=== PATIENT | male | born 1965 | race Caucasian/White ===

== ENCOUNTER 2016-06-27 07:11 | Emergency (ER) | payer OTHER ==
[2016-06-27 07:50] VITALS: BP 136/74
--- NOTE | 2016-06-27 08:00 | UC ---
Dahlia Mcmullen Janilya, scribed for Cristy Daniel MD on 06/27/16 at 0743 . Respiratory Complaint HPI - HPI Summary HPI Summary: A 51 y/o male came in to [facility] presenting w/ a gradual onset of constant sinus infection starting last week on Jun 22, 2016. Pt states he felt uncomfortable sensation in his teeth. He visited a dentist on 06/22 and was told his teeth were normal. Over the course of this week, his conditions have progressively worsened. In fact, he woke up last night at 0300 with discomfort. He reports popping in the ear and throbbing pain in the face. It is localized on the left side, however, pt says it sometimes shifts to the right side. Pt denies fever, coughing, wheezing. Pt states it feels like usual Sx when he had sinus infection previously. Initial blood pressure noted at 193/98. Manual measurement bp at 136/74. Pt is unaccompanied. Pt did not take any OTC cold medicine or decongestants. PMHx rheumatoid arthritis. - History of Current Complaint Chief Complaint: UCRespiratory Stated Complaint: SINUS ISSUE Time Seen by Provider: 06/27/16 07:23 Hx Obtained From: Patient Onset/Duration: Gradual Onset, Lasting Days, Still Present Timing: Constant Severity Initially: Moderate Severity Currently: Moderate Pain Intensity: 3 Pain Scale Used: 0-10 Numeric Aggravating Factors: Nothing Alleviating Factors: Nothing Associated Signs And Symptoms: Negative: Fever, Wheezing - Allergies/Home Medications Allergies/Adverse Reactions: Allergies Allergy/AdvReac Type Severity Reaction Status Date / Time No Known Allergies Allergy Verified 06/17/15 11:49 Home Medications: Home Medications Amlodipine Besylate [Norvasc-] 1 tab PO DAILY 06/27/16 [History Confirmed ] Diclofenac Sodium EC TAB* [Voltaren EC TAB*] 3 tab PO BID PRN 06/27/16 [History Confirmed 06/27/16] Hydroxychloroquine TAB* [Plaquenil TAB*] 2 tab PO DAILY 06/27/16 [History Confirmed 06/27/16] Lisinopril/HCTZ 20/12.5(NF) [Zestoretic 20/12.5(NF)] 1 tab PO DAILY 06/27/16 [ History Confirmed 06/27/16] Testosterone [Androgel] TOPICAL DAILY 06/27/16 [History] PMH/Surg Hx/FS Hx/Imm Hx Previously Healthy: Yes Endocrine History Of: Denies: Diabetes, Thyroid Disease Cardiovascular History Of: Reports: Hypertension Denies: Cardiac Disorders, Pacemaker/ICD Respiratory History Of: Denies: COPD, Asthma GI/ History Of: Denies: Ulcer - Surgical History Surgical History: Yes Surgery Procedure, Year, and Place: Hernia repair at age 14. - Family History Known Family History: Positive: Cardiac Disease - father, diabetes also, Hypertension - father, Diabetes - father - Social History Alcohol Use: Occasionally Substance Use Type: None Smoking Status (MU): Never Smoked Tobacco - Immunization History Most Recent Influenza Vaccination: DID NOT GET THIS SEASON Review of Systems Constitutional: Negative - pt denies fever, Other - pt reports discomfort and throbbing pain on the face Skin: Negative Eyes: Negative ENT: Other - pt reports popping in the ear Respiratory: Negative - pt denies cough and wheezing Cardiovascular: Negative Gastrointestinal: Negative Genitourinary: Negative Motor: Negative Neurovascular: Negative Musculoskeletal: Negative Neurological: Headache Psychological: Negative All Other Systems Reviewed And Are Negative: Yes Physical Exam Triage Information Reviewed: Yes Appearance: Well-Appearing Vital Signs: Initial Vital Signs Temp 99.2 F 06/27/16 07:29 Pulse 92 06/27/16 07:29 Resp 16 06/27/16 07:29 BP 193/98 06/27/16 07:29 Pulse Ox 95 06/27/16 07:29 Vital Signs Reviewed: Yes Eye Exam: Normal Eyes: Positive: Conjunctiva Clear ENT: Positive: Normal ENT inspection, Hearing grossly normal, Pharynx normal, TMs normal, Other: - no maxillary or frontal tenderness b/l.. Negative: Pharyngeal erythema, TM bulging, TM dull, TM red, Tonsillar exudate Dental Exam: Normal Neck: Positive: Supple, Nontender, No Lymphadenopathy Respiratory: Positive: Lungs clear, Normal breath sounds, No respiratory distress, No accessory muscle use Cardiovascular: Positive: RRR, No Murmur, Pulses Normal Abdomen Description: Positive: Nontender, Soft Musculoskeletal Exam: Normal Neurological Exam: Normal Psychological Exam: Normal Skin Exam: Normal UC Diagnostic Evaluation - Laboratory O2 Sat by Pulse Oximetry: 95 Respiratory Course/Dx - Differential Dx/Diagnosis Provider Diagnoses: Sinus infection Discharge - Discharge Plan Condition: Stable Disposition: HOME Prescriptions: Amoxicillin (*) 875 mg PO BID #20 tab Patient Education Materials: Sinusitis (ED) Referrals: Evin Barton MD [Medical Doctor] - No Primary Care Phys,NOPCP [Primary Care Provider] - Additional Instructions: 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 Take a probiotic. Use daily saline lavage while you have sinus symptoms followed by OTC flonase nasal spray. Avoid decongestants due to hypertension. The documentation as recorded by the Dahlia perera Janilya accurately reflects the service I personally performed and the decisions made by me, Cristy Daniel MD.
== END 2016-06-27 07:52 | disposition home or self-care (01) ==
LOC: UCEAST 07:11
DX: J32.9 Chronic sinusitis, unspecified (principal); I10 Essential (primary) hypertension; M06.9 Rheumatoid arthritis, unspecified
CPT/HCPCS: 99212; G0463

== ENCOUNTER 2017-10-31 08:28 | Emergency (ER) | payer OTHER ==
[2017-10-31 08:49] VITALS: BP 165/92
--- NOTE | 2017-10-31 14:14 | UC ---
Gumaro Mcmullen Natalie, scribed for Caryn Espana MD on 10/31/17 at 1212 . Ear Complaint HPI - HPI Summary HPI Summary: The patient is a 52 y/o M presenting to [facility] c/o right ear pain starting a week ago and right shoulder and neck pain starting a few weeks ago. The pt was swimming and noticed that his ear was blocked. He has been using wax ear drops to some relief of wax build up, but there is still pain present, and not all of the wax has been removed. His left ear is normal. The shoulder pain is worsened by neck movement, especially when turning to the right side. The shoulder pain is not worsened by lifting weights or lifting arm over his shoulder. He states he can sometimes feel a "crunching" in his neck. The pain is rated 3/10 in severity. He denies fevers, chills, CP, SOB, nausea, vomiting, abd pain, and numbness or tingling in the fingers. He had fallen off of a roof four years ago and isn't sure how he fell off. He has hx of HTN, hypercholesterolemia, and RA. He takes amlodapine for HTN. He doesn't have any allergies. - History of Current Complaint Chief Complaint: UCEar Stated Complaint: EAR PLUGGED SHOULDER PAIN Time Seen by Provider: 10/31/17 08:56 Hx Obtained From: Patient Onset/Duration: Sudden Onset, Lasting Days - ear pain for 1 week, Lasting Weeks - shoulder and neck pain lasting for weeks, Still Present Severity Initially: Mild Severity Currently: Mild Pain Intensity: 3 Pain Scale Used: 0-10 Numeric Aggravating Factors: Other - movement of neck worsens shoulder pain, nothing worsens ear pain Alleviating Factors: Other (Noted In Comments) - rest alleviates shoulder pain, ear drops helped to relieve some wax buildup - Allergies/Home Medications Allergies/Adverse Reactions: Allergies Allergy/AdvReac Type Severity Reaction Status Date / Time No Known Allergies Allergy Verified 10/31/17 08:50 Home Medications: Home Medications Glucosamine Sulfate Dipot Chlr [Glucosamine] 1 tab PO DAILY 10/31/17 [History Confirmed 10/31/17] PMH/Surg Hx/FS Hx/Imm Hx - Additional Past Medical History Additional PMH: POSITIVE: rheumatoid arthritis Previously Healthy: Yes Endocrine History: Dyslipidemia, Other - hypercholesterolemia Other Endocrine History: negative Cardiovascular History: Hypertension Other Respiratory History: negative Other GI/ History: negative Other Neurological History: negative Other Psychological History: negative Other Cancer History: negative - Surgical History Surgical History: Yes Surgery Procedure, Year, and Place: Hernia repair at age 14. - Family History Known Family History: Positive: Cardiac Disease - father, diabetes also, Hypertension - father, Diabetes - father - Social History Alcohol Use: Occasionally Substance Use Type: None Smoking Status (MU): Never Smoked Tobacco - Immunization History Most Recent Influenza Vaccination: DID NOT GET THIS SEASON Review of Systems Constitutional: Other - NEGATIVE: fever or chills Skin: Negative Eyes: Negative ENT: Other - POSITIVE: pain in right ear Respiratory: Negative, Other - NEGATIVE: SOB Cardiovascular: Negative, Other - NEGATIVE: CP Gastrointestinal: Negative, Other - NEGATIVE: nausea, vomiting, abd pain Genitourinary: Negative Motor: Negative Neurovascular: Negative Musculoskeletal: Negative, Other: - pain in right neck and shoulder Neurological: Negative, Other - NEGATIVE: numbness or tingling in fingers Is Patient Immunocompromised?: No All Other Systems Reviewed And Are Negative: Yes Physical Exam - Summary Physical Exam Summary: Appearance: Well-Appearing, No Pain Distress, Well-Nourished Eyes: conjunctiva clear, no discharge ENT: Hearing grossly normal, no muffled/hoarse voice, right ear has impacted cerumen, left ear has cerumen present but is not impacted, no lymphadenopathy, no pharyngeal erythema Neck: no midline tenderness, there is mild mid right paraspinal tenderness noted. Supple, tenderness with motion and slightly limited ROM on right Pathak and Spurling tests negative in right shoulder Respiratory/Lung Sounds: Lungs clear, Normal breath sounds, No respiratory distress, No accessory muscle use Cardiovascular: RRR, No murmur Abdomen: Nontender, Soft, no guarding, not distended Bowel Sounds: Present Musculoskeletal: Shoulder: full ROM and strength and stability. Neurological: Alert, muscle tone normal Psychiatric:Normal, age appropriate behavior Skin: Normal, Warm, Dry, Normal color Triage Information Reviewed: Yes Vital Signs: Initial Vital Signs Temp 99.4 F 10/31/17 08:41 Pulse 98 10/31/17 08:41 Resp 18 10/31/17 08:41 BP 165/92 10/31/17 08:41 Pulse Ox 97 10/31/17 08:41 Vital Signs Reviewed: Yes Ear Complaint Course/Dx - Course Course Of Treatment: The patient is a 52 y/o M presenting to [facility] c/o right ear pain starting a week ago and right shoulder and neck pain starting a few weeks ago. He noticed the ear pain after swimming, so he has been using ear drops to help relive some wax buildup, although there is still pain. The shoulder pain is worsened by movement of his neck, especially by moving towards the right side. He denies fevers, chills, SOB, CP, nausea, vomiting, abd pain, and numbness or tingling in fingers. He has hx of HTN, hypercholesterolemia, and RA. Medciations reviewed. Allergies noted. In the [facility], the pt's right ear was irrigated. Patient will be discharged home with instructions for cervical strain and cerumen impaction. He is advised to follow up with his PCP in two days and consult with orthopedist, Dr. Santacruz Start PT for his neck. Patient is agreeable with this plan. - Differential Dx/Diagnosis Provider Diagnoses: cervical strain, cerumen impaction Discharge - Sign-Out/Discharge Documenting (check all that apply): Discharge/Admit/Transfer - Pt will be discharged home. - Discharge Plan Condition: Stable Disposition: HOME Patient Education Materials: Cervical Strain (ED), Cerumen Impaction (ED) Referrals: Shaw Santacruz MD [Medical Doctor] - 2 Weeks Evin Barton MD [Primary Care Provider] - 2 Weeks Additional Instructions: Start physical therapy for your neck strain Follow up with your primary care doctor in 2 days. Please follow up with orthopedics in 2 weeks for the consult Patients blood pressure slightly high in Urgent care today , plan follow up with PCP for better control Return to Urgent care / ER if symptoms get worse. - Billing Disposition and Condition Condition: STABLE Disposition: Home The documentation as recorded by the Gumaro perera Natalie accurately reflects the service I personally performed and the decisions made by me, Caryn Espana MD.
== END 2017-10-31 09:38 | disposition home or self-care (01) ==
LOC: UCEAST 08:28
DX: H61.21 Impacted cerumen, right ear (principal); S16.1XXA Strain of muscle, fascia and tendon at neck level, initial encounter; M06.9 Rheumatoid arthritis, unspecified; Z79.899 Other long term (current) drug therapy; I10 Essential (primary) hypertension; X58.XXXA Exposure to other specified factors, initial encounter; Y92.9 Unspecified place or not applicable
CPT/HCPCS: 99213; G0463

== ENCOUNTER 2018-03-22 05:34 | Inpatient (IN) | payer OTHER ==
[~2018-03-22 05:34] MED LIST: Buffered Lidocaine 0.9% SYRIN* 5 ML/SYR SYRINGE INTRADERM ONE
[2018-03-22] MEDS ORDERED: Lidocain 1% EPI 1:100,000 * 30 ML MDV ONE (06:47)
[2018-03-22] MEDS ORDERED: Bacitracin IV* 50,000 UNITS INJ ONE (06:48)
[2018-03-22] MEDS ORDERED: Thrombin 5,000 UNITS* 1 APPLIC KIT - topical use - TOPICAL ONE (06:48)
[2018-03-22] MEDS ORDERED: Buffered Lidocaine 0.9% SYRIN* 5 ML/SYR SYRINGE ONE (07:00)
[2018-03-22] MEDS ORDERED: ceFAZolin 2 GM PREMIX in ORs 2 GM/50 ML BAG IVPB ONE (07:00)
[2018-03-22] MEDS ORDERED: fentaNYL* 50 MCG/ML 5 ML VIAL (250 MCG VIAL) ONE (07:33)
[2018-03-22] MEDS ORDERED: Propofol* 10 MG/ML 20 ML BTL ONE (07:33)
[2018-03-22] MEDS ORDERED: Atracurium* 10 MG/ML 10 ML VIAL ONE (07:33)
[2018-03-22] MEDS ORDERED: Midazolam* 1 MG/ML 5 ML VIAL (5 MG) ONE (07:33)
[2018-03-22] MEDS ORDERED: Dexamethasone IV* 4 MG/ML 1 ML (4 MG) ONE (08:10)
[2018-03-22] MEDS ORDERED: Naloxone* 0.4 MG/ML 1 ML VIAL IV PRN (08:52)
[2018-03-22] MEDS ORDERED: HYDROmorphone INJ1* 1 MG/ML SYRINGE IV PRN (08:52)
[2018-03-22] MEDS ORDERED: DiMENhydriNATE IV* 50 MG/ML VIAL IV PUSH PRN (08:52)
[2018-03-22] MEDS ORDERED: Ondansetron INJ* 2 MG/ML VIAL IV PRN ×2 (08:52→11:10)
[2018-03-22] MEDS ORDERED: Acetaminophen IV 1GM/100ML * 1,000 MG/100 ML VIAL IVPB ONE (08:52)
[2018-03-22] MEDS ORDERED: oxyCODONE TAB* 5 MG TAB PO PRN (08:52)
[2018-03-22] MEDS ORDERED: Ondansetron INJ* 2 MG/ML VIAL ONE (11:06)
[2018-03-22] MEDS ORDERED: Glycopyrrolate IV* 0.2 MG/ML 1 ML VIAL ONE (11:08)
[2018-03-22] MEDS ORDERED: Neostigmine Methylsulfate* 1 MG/ML 10 ML VIAL (1 mg/ml) ONE (11:08)
[2018-03-22] MEDS ORDERED: Cyclobenzaprine TAB* 10 MG PO PRN (11:12)
[2018-03-22] MEDS ORDERED: Acetaminophen IV 1GM/100ML * 100 ML ONE (11:28)
[2018-03-22] MEDS ORDERED: fentaNYL* 50 MCG/ML 2 ML VIAL (100 MCG VIAL) ONE (11:50)
[2018-03-22] MEDS: fentaNYL* 50 MCG/ML 2 ML VIAL (100 MCG VIAL) IV PRN ×2 (12:02→12:32)
[2018-03-22] MEDS: oxyCODONE TAB* 5 MG TAB PO PRN ×2 (15:00→19:29)
[2018-03-23] MEDS: oxyCODONE TAB* 5 MG TAB PO PRN ×5 (01:40→21:35)
[2018-03-23] MEDS: Magnesium Hydroxide LIQ* 30 ML UDC PO PRN (05:24)
--- NOTE | 2018-03-23 07:48 | PN ---
Progress Note - Progress Note Date of Service: 03/23/18 SOAP: Subjective: []Doing well Pre op leg pain relieved Moderate output from MARGE drain Objective: []Moderate drain output Neuro intact Assessment: []Satis post op course Plan: []Continue to monitor drain output
[2018-03-23] MEDS: amLODIPine TAB* 5 MG PO SCH (08:06)
[2018-03-23] MEDS: Hydrochlorothiazide TAB* 25 MG PO SCH (08:07)
[2018-03-23] MEDS: Lisinopril TAB* 10 MG PO SCH (08:07)
[2018-03-23] MEDS: Hydroxychloroquine TAB* 200 MG PO SCH (08:08)
[2018-03-23] MEDS: Metoprolol Succinate XL TAB* 25 MG PO SCH (08:08)
[2018-03-23] MEDS ORDERED: Melatonin 3 MG TAB PO PRN (15:17)
[2018-03-23] MEDS: Docusate CAP* 100 MG PO PRN (17:22)
[2018-03-24] MEDS: oxyCODONE TAB* 5 MG TAB PO PRN ×2 (01:58→09:28)
--- NOTE | 2018-03-24 06:27 | OP ---
DATE OF OPERATION: 03/22/18 - ROOM #347 DATE OF : 61 SURGEON: Navid Lemus MD COMPENSATION MANAGER: RANI Love ANESTHESIA: General. PRE-OP DIAGNOSIS: Lumbar spinal stenosis, L4-5, with spondylolisthesis, L4-5. POST-OP DIAGNOSIS: Lumbar spinal stenosis, L4-5, with spondylolisthesis, L4-5. OPERATIVE PROCEDURE: Decompressive lumbar laminectomy, L4-5, with posterolateral fusion, L4-5; nonsegmental instrumentation, L4-5; harvesting of autograft for fusion, allograft for fusion; use of stereotactic navigation for screw placement. DESCRIPTION OF PROCEDURE: After satisfactory general anesthesia was obtained, the patient was placed on the Ciro table in the prone position. The lumbar region was then clipped, prepped, and draped in a sterile manner for lumbar laminectomy and a skin incision outlined from L4 to the sacrum. This incision was infiltrated with 1% Xylocaine with epinephrine, after which it was turned down sharply to the level of the lumbar fascia. The fascia was divided along the spinous processes from L3 to the sacrum and a paraspinal musculature stripped away from these posterior elements utilizing a periosteal elevator and a monopolar cautery. This dissection was carried out laterally until both the transverse processes of L4 and L5 were visualized. An intraoperative x-ray was obtained at this time verifying proper interspace localization. The Stealth reference arc was then attached to the L5 spinous process. The Stealth [employer] Grid O-arm intraoperative CT scanner was then brought into the field and an initial spin done for registration. After obtaining these images, pedicle screws were placed in L4 and L5 initially on the left side at L4 where a 6.5-mm diameter 45 mm in length screw was placed. At L5, a 6.5 mm in diameter, 40- mm length screw was placed. On the right side at L4, a 6.5 mm in diameter 45-mm length screw was placed, and at L5, a 6.5 mm in diameter 40-mm screw was placed. A post screw placement spin was then performed showing satisfactory screw placement. Attention was then directed to the decompressive portion of the procedure and the spinous processes of L4 and L5 were removed to be used for autograft later in the procedure. The remaining portion of the base of this spinous and lamina was then thinned out with the Midas Aaron drill and removed with Kerrisons. The pathology at this level was noted to be abundant bony hypertrophy as well as ligamentum flavum overgrowth and a component of synovial cyst on the right side. The decompression was carried out laterally and inferiorly until generous foraminotomies had been performed over both L5 nerve roots. At the conclusion of the decompression, a nerve hook would go out readily with both nerve roots. The autograft harvested was then combined with allograft and bone putty to form bone logs, which were placed out laterally over the transverse processes of L4 and L5, which were slightly decorticated. Rods were then placed into the screws and secured into position. A drain was then placed in the epidural space and tunneled out toward the left side. The fascia was then reapproximated with 0 Vicryl suture. The subcutaneous tissues were closed with 3-0 Vicryl suture and the skin closed with skin clips. The estimated blood loss was 200 cc and the final sponge, padding, and needle counts were correct. The patient was taken to the recovery room, extubated, and in stable condition. [id number]/[facility] #: [id number] [facility] CENTERUrmila
[2018-03-24 07:57] VITALS: BP 112/57
[2018-03-24] MEDS: Magnesium Hydroxide LIQ* 30 ML UDC PO PRN (08:08)
[2018-03-24] MEDS: Metoprolol Succinate XL TAB* 25 MG PO SCH (08:09)
[2018-03-24] MEDS: Hydroxychloroquine TAB* 200 MG PO SCH (08:09)
[2018-03-24] MEDS: Docusate CAP* 100 MG PO PRN (08:09)
--- NOTE | 2018-03-24 08:12 | PN ---
Progress Note - Progress Note Date of Service: 03/24/18 SOAP: Subjective: [S/p L4-5 lumbar decompression and fusion with instrumentation, POD#2. Patient is ambulating well independently. Complains of minimal low back soreness, controlled with PO medication. Eating and drinking without difficulty. Pre-op RLE pain resolved. Denies headache, nausea. ] Objective: [ Vital Signs: Temp Pulse Resp BP Pulse Ox 99.1 F 74 18 112/57 94 03/24/18 07:19 03/24/18 07:19 03/24/18 09:28 03/24/18 07:19 03/24/18 07:19 General: Alert and NAD Neuro: Motor and sensory intact. Incision: Wound drain discontinued today. Wound without swelling, erythema. ] Assessment: [Satisfactory post-op.] Plan: [1. Discharge home today. 2. Discharge instructions discussed.]
[2018-03-24] MEDS: Hydrochlorothiazide TAB* 25 MG PO SCH (08:55)
[2018-03-24] MEDS: Lisinopril TAB* 10 MG PO SCH (08:55)
[2018-03-24] MEDS: amLODIPine TAB* 5 MG PO SCH (08:55)
--- NOTE | 2018-03-25 10:49 | DS ---
DISCHARGE SUMMARY: DATE OF ADMISSION: 03/22/18 DATE OF DISCHARGE: 03/24/18 ATTENDING PROVIDER: Navid Lemus MD * (DICTATED BY RANI DIOR) DISCHARGE DIAGNOSES: 1. Spondylolisthesis, L4-5. 2. Lumbar stenosis L4-5. SPECIAL PROCEDURES: Decompressive lumbar laminectomy L4-5 with fusion and instrumentation. HOSPITAL COURSE: This 53-year-old male who was seen in the office with right- sided lumbar radiculopathy consistent with MRI findings of spondylolisthesis and stenosis at L4-5. Symptoms had become unmanageable over the previous several months and he failed to improve with conservative treatments. He was limited in his abilities at work, in addition to ambulating independently. Surgical intervention was discussed in the office and the patient decided to proceed with this option. On the day of admission, he was taken to surgery where under general anesthesia a decompressive lumbar laminectomy at L5-4 with instrumented fusion operation was carried out. Postoperatively he was doing well and the right lower extremity symptoms were resolved. He was ambulating independently. He was eating, drinking, and voiding without difficulty. Pain was well controlled with minimal pain medications. On the first postoperative day, the wound drain continued to collect a large volume of fluid and was therefore left in place. On the second postoperative day, the wound drain volume collection had slowed and was therefore discontinued. He was discharged home to the care of his . DISCHARGE INSTRUCTIONS: Wound care and activity level were discussed with the patient and information on this was provided. DISCHARGE MEDICATIONS: Oxycodone 5 mg 1 to 2 tabs by mouth every 4 hours as needed for pain. FOLLOWUP: He will be seen in the office in approximately 7 to 10 days for followup. RANI DIOR [id number]/[facility] #: [id number] [facility] CENTERUrmila
== END 2018-03-24 09:47 | disposition home or self-care (01) | DRG 460 ==
LOC: OR 05:34 → SSU 13:36
PROVIDERS: ADMIT Neurological Surgery; ATTEND Neurological Surgery
PROC: 8E0WXBG Computer Assisted Procedure of Trunk Region, With Computerized Tomography (ICD-10-PCS; 2018-03-22)
PROC: 0SG0071 Fusion of Lumbar Vertebral Joint with Autologous Tissue Substitute, Posterior Approach, Posterior Column, Open Approach (ICD-10-PCS; principal; 2018-03-22 07:30)
DX: M43.16 Spondylolisthesis, lumbar region (principal); M48.061 Spinal stenosis, lumbar region without neurogenic claudication; I10 Essential (primary) hypertension; E78.1 Pure hyperglyceridemia; E23.0 Hypopituitarism; I08.3 Combined rheumatic disorders of mitral, aortic and tricuspid valves; I37.1 Nonrheumatic pulmonary valve insufficiency; Z72.89 Other problems related to lifestyle; Z83.3 Family history of diabetes mellitus; Z82.49 Family history of ischemic heart disease and other diseases of the circulatory system; M51.26 Other intervertebral disc displacement, lumbar region; M51.16 Intervertebral disc disorders with radiculopathy, lumbar region
CPT/HCPCS: 72100; 76001; A9270-GY; C1713; C1776; J0690; J1100; J2250; J2405; J2704; J2710; J3010

== ENCOUNTER 2018-04-23 10:48 | Emergency (ER) | payer OTHER ==
--- OUTSIDE RECORDS SUMMARY | 2018-04-23 10:53 | XMS REPORT | Continuity of Care Document ---
:1965 External Reference #:[id number] Author Name Cherie Virk Care Team Providers Name Role Phone Evin Barton MD Primary Care Physician Unavailable Payers Type Date Identification Numbers Payment Provider Subscriber Effective: Policy Number: [id number] ariana Kellen Dai 2017 PayID: [id number] [address] [address] [place] [address] Advance Directives Description No Information Available Problems Description No Information Family History Date Family Member(s) Problem(s) Comments General Heart Disease General diabetes in immediate family Social History Type Date Description Comments Sex Unknown Marital Status Lives With 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 ETOH Use Occasionally consumes alcohol ETOH Use Currently consumes alcohol daily Tobacco Use Start: Unknown Patient has never smoked Recreational Drug Use Denies Drug Use Smoking Status Reviewed: 04/13/18 Patient has never smoked Exercise Type/Frequency Exercises regularly Allergies, Adverse Reactions, Alerts Description No Known Drug Allergies Medications Medication Date Status Form Strength Qnty SIG Indications Ordering Provider Ibuprofen 01/03 Active Tablets 200mg Take 1 as M05.79 needed Janet Sanabria Hydroxychloroquine 07/13 Active Tablets 200mg 20tab take two Zsofia Sulfate s tablets by Brooks, mouth daily 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) Amlodipine Active Tablets 10mg 1 by mouth Unknown Besylate /0000 every day Vascepa Active Capsules 1gm 2 by mouth Unknown /0000 twice a day x 30 d Androgel Pump Active Gel 20.25mg/A qd for 4 Unknown /0000 ct lbs (1.62%) Zanaflex Active Capsules 2mg 1 by mouth Unknown /0000 at hs prn Lisinopril-Hydroch Active Tablets 20-12.5mg Take Two Unknown lorothiazide /0000 Tablets By Mouth Every Day Multi Vitamin 00 Active Tablets 1 by mouth Unknown Daily /0000 every day Glucosamine 00 Active Capsules 1500Com 2 by mouth Unknown Chondroitin 1500 /0000 every day Complex Metoprolol 00 Active Tablets 25mg 1 by mouth Unknown Succinate ER /0000 ER 24HR every day Ventolin HFA 02/19 Hx Aerosol 108(90Bas 8gm 1 unit puff J45.909 Shireen /2017 e) every 6 Farzad, - mcg/Act hours as 03/09 needed Diclofenac Sodium 12/03 Hx Tablets 75mg 90tab take one M05.79 DR s tablet by Elly, - mouth daily M.D. 01/03 as needed for pain, avoid other nsaids Plaquenil 09/05 Hx Tablets 200mg 180ta Take One bs Tablet By Elly, - Mouth Twice M.D. 01/03 A Cyanocobalamin 08/26 Hx Solution 1000mcg/M 6mon 1 D51.9 L milliliters Elly, - intramuscul M.D. 08/26 ar q week 4 weeks then once a month. Lisinopril 0000 Hx Tablets 40mg 1 by mouth Unknown /0000 every day - 01/18 Metoprolol 0000 Hx Tablets 25mg 1 by mouth Unknown Tartrate /0000 twice a day - 08/26 Atorvastatin Hx Tablets 20mg take 1 Unknown Calcium /0000 tablet at - bedtime 01/18 Preservision Areds 00 Hx Capsules 1 tab by Unknown /0000 mouth once - a day 04/27 Immunizations Description No Information Available Vital Signs Date Vital Result Comment 04/13/2018 3:12pm Height 71 inches 5'11" Weight 214.00 lb BP Systolic Sitting 130 mmHg BP Diastolic Sitting 78 mmHg Pain Level 0 BMI (Body Mass Index) 29.8 kg/m2 03/30/2018 3:07pm Height 71 inches 5'11" BP Systolic Sitting 122 mmHg BP Diastolic Sitting 84 mmHg Body Temperature 97.3 F Pain Level 4 03/09/2018 2:45pm Height 71 inches 5'11" Weight 214.00 lb BMI (Body Mass Index) 29.8 kg/m2 03/09/2018 8:51am Height 71 inches 5'11" Weight 214.00 lb BP Systolic Sitting 140 mmHg BP Diastolic Sitting 70 mmHg BMI (Body Mass Index) 29.8 kg/m2 01/03/2018 7:59am Height 71 inches 5'11" Weight 214.00 lb Heart Rate 72 /min BP Systolic Sitting 131 mmHg BP Diastolic Sitting 77 mmHg Respiratory Rate 14 /min Pain Level 1 BMI (Body Mass Index) 29.8 kg/m2 04/27/2017 9:19am Height 71 inches 5'11" Weight 216.00 lb Heart Rate 86 /min BP Systolic Sitting 168 mmHg BP Diastolic Sitting 93 mmHg Respiratory Rate 14 /min Pain Level 1 BMI (Body Mass Index) 30.1 kg/m2 02/19/2017 9:08am Height 71 inches 5'11" Weight 215.00 lb Heart Rate 76 /min BP Systolic Sitting 146 mmHg BP Diastolic Sitting 80 mmHg Respiratory Rate 14 /min O2 % BldC Oximetry 98 % BMI (Body Mass Index) 30.0 kg/m2 01/19/2017 11:10am Height 71 inches 5'11" Weight 215.00 lb Heart Rate 80 /min BP Systolic Sitting 120 mmHg BP Diastolic Sitting 76 mmHg Respiratory Rate 14 /min O2 % BldC Oximetry 94 % BMI (Body Mass Index) 30.0 kg/m2 Neck Circumference in inches 16.5 07/27/2016 7:55am Height 71 inches 5'11" Heart Rate 93 /min BP Systolic Sitting 159 mmHg BP Diastolic Sitting 89 mmHg Respiratory Rate 14 /min Body Temperature 98.2 F Pain Level 1 01/01/2016 7:58am Height 71 inches 5'11" Weight 212.00 lb Heart Rate 84 /min BP Systolic Sitting 170 mmHg BP Diastolic Sitting 90 mmHg Respiratory Rate 14 /min Body Temperature 98.1 F Pain Level 1 BMI (Body Mass Index) 29.6 kg/m2 10/01/2015 8:17am Height 71 inches 5'11" Weight 218.00 lb Heart Rate 80 /min BP Systolic Sitting 160 mmHg BP Diastolic Sitting 100 mmHg Body Temperature 97.0 F Pain Level 1 BMI (Body Mass Index) 30.4 kg/m2 08/27/2015 3:42pm Height 71 inches 5'11" Weight 217.00 lb Heart Rate 84 /min BP Systolic Sitting 152 mmHg BP Diastolic Sitting 90 mmHg Body Temperature 97.6 F Pain Level 1 BMI (Body Mass Index) 30.3 kg/m2 06/04/2015 1:49pm Height 73 inches 6'1" Weight 220.00 lb Heart Rate 87 /min BP Systolic 163 mmHg BP Diastolic 97 mmHg BMI (Body Mass Index) 29.0 kg/m2 Results Test Date Facility Test Result H/L Range Note Laboratory test 03/21/2018 [facility] Cancellous Chips SEE RESULTS 1, [address] BELO <[place] [address] NOTE> [phone] DBX 10.0 SEE RESULTS BELO <SEE NOTE> 3 Basic Metabolic Panel 03/16/2018 [facility] Sodium 136 mmol/L N [address] [place] [address] [phone] Potassium 3.8 mmol/L N 3.5-5.0 Chloride 97 mmol/L Low 101-111 Co2 Carbon Dioxide 30 mmol/L N 22-32 Anion Gap 9 mmol/L N 2-11 Glucose 95 mg/dL N 70-100 Blood Urea Nitrogen 25 mg/dL High 6-24 Creatinine 1.16 mg/dL N 0.67-1.17 BUN/Creatinine Ratio 21.6 High 8-20 Calcium 9.7 mg/dL N 8.6-10.3 Egfr Non- 65.4 >60 Egfr 79.1 >60 4 CBC No Diff 03/16/2018 [facility] White Blood 5.9 10^3/uL N 3.5-10.8 [place] [address] [phone] Red Blood Count 4.93 10^6/uL N 4.00-5.40 Hemoglobin 16.6 g/dL N 14.0-18.0 Hematocrit 47 % N 42-52 Mean Corpuscular Volume 95 fL High 80-94 Mean Corpuscular Hemoglobin 34 pg High 27-31 Mean Corpuscular HGB Conc 36 g/dL N 31-36 Red Cell Distribution Width 13 % N 10.5-15 Platelet Count 178 10^3/uL N 150-450 Mean Platelet Volume 8.4 fL N 7.4-10.4 Type & Screen 03/16/2018 [facility] Patient Blood Type B Positive [address] [place] [address] [phone] Antibody Screen NEGATIVE Laboratory test 01/08/2016 [facility] Creatine 718 U/L High 10 -223 [address] Kinase(CK) [place] [address] [phone] C Reactive Protein < 1.00 mg/L N < 5.00 6 Erythrocyte Sed Rate 5 mm/Hr N 0-20 7 CBC Auto Diff 01/08/2016 [facility] White Blood 5.4 10^3/uL N 3.5-10.[address] [place] [address] [phone] Red Blood Count 5.18 10^6/uL N 4.0-5.4 Hemoglobin 16.7 g/dL N 14.0-18.0 Hematocrit 49 % N 42-52 Mean Corpuscular Volume 94 fL N 80-94 Mean Corpuscular Hemoglobin 32 pg High 27-31 Mean Corpuscular HGB Conc 34 g/dL N 31-36 Red Cell Distribution Width 14 % N 10.5-15 Platelet Count 165 10^3/uL N 150-450 Mean Platelet Volume 9 um3 N 7.4-10.4 Abs Neutrophils 3.8 10^3/uL N 1.5-7.7 Abs Lymphocytes 0.9 10^3/uL Low 1.0-4.8 Abs Monocytes 0.5 10^3/uL N 0-0.8 Abs Eosinophils 0.1 10^3/uL N 0-0.6 Abs Basophils 0.1 10^3/uL N 0-0.2 Abs Nucleated RBC 0 10^3/uL N Granulocyte % 70.6 % N 38-83 Lymphocyte % 16.7 % Low 25-47 Monocyte % 9.9 % High 1-9 Eosinophil % 1.8 % N 0-6 Basophil % 1.0 % N 0-2 Nucleated Red Blood Cells % 0 N Comp Metabolic Panel 01/08/2016 [facility] Sodium 137 mmol/L N 133-[address] [place] [address] [phone] Potassium 4.2 mmol/L N 3.5-5.0 Chloride 99 mmol/L Low 101-111 Co2 Carbon Dioxide 30 mmol/L N 22-32 Anion Gap 8 mmol/L N 2-11 Glucose 103 mg/dL High 70-100 Blood Urea Nitrogen 16 mg/dL N 6-24 Creatinine 1.10 mg/dL N 0.67-1.17 BUN/Creatinine Ratio 14.5 N 8-20 Calcium 9.2 mg/dL N 8.6-10.3 Total Protein 7.0 g/dL N 6.4-8.9 Albumin 4.3 g/dL N 3.2-5.2 Globulin 2.7 g/dL N 2-4 Albumin/Globulin Ratio 1.6 N 1-3 Total Bilirubin 0.80 mg/dL N 0.2-1.0 Alkaline Phosphatase 43 U/L N 34-104 Alt 36 U/L N 7-52 Ast 55 U/L High 13-39 Egfr Non- 70.3 N >60 Egfr 90.4 N >60 8 Lipid Profile 01/08/2016 [facility] Triglycerides 218 mg/dL N 9 (Trig/Chol/HDL) [address] [place] [address] [phone] Cholesterol 246 mg/dL N 10 HDL Cholesterol 53.9 mg/dL N 11 LDL Cholesterol 149 mg/dL N 12 Laboratory test 01/08/2016 [facility] Aldolase 6.8 U/L N <7.7 [address] [place] [address] [phone] CBC Auto Diff 10/05/2015 [facility] White Blood 5.6 N 3.5- 10.[address] Count 10^3/[place] [address] [phone] Red Blood Count 5.27 10^6/uL N 4.0-5.4 Hemoglobin 16.9 g/dL N 14.0-18.0 Hematocrit 49 % N 42-52 Mean Corpuscular Volume 93 fL N 80-94 Mean Corpuscular Hemoglobin 32 pg High 27-31 Mean Corpuscular HGB Conc 34 g/dL N 31-36 Red Cell Distribution Width 13 % N 10.5-15 Platelet Count 149 10^3/uL Low 150-450 Mean Platelet Volume 9 um3 N 7.4-10.4 Abs Neutrophils 3.7 10^3/uL N 1.5-7.7 Abs Lymphocytes 1.0 10^3/uL N 1.0-4.8 Abs Monocytes 0.6 10^3/uL N 0-0.8 Abs Eosinophils 0.3 10^3/uL N 0-0.6 Abs Basophils 0 10^3/uL N 0-0.2 Abs Nucleated RBC 0 10^3/uL N Granulocyte % 65.7 % N 38-83 Lymphocyte % 17.3 % Low 25-47 Monocyte % 10.5 % High 1-9 Eosinophil % 5.7 % N 0-6 Basophil % 0.8 % N 0-2 Nucleated Red Blood Cells % 0 N Laboratory test 10/05/2015 [facility] Erythrocyte Sed 7 mm/Hr N 0-20 [address] [place] [address] [phone] C Reactive Protein 1.89 mg/L N < 5.00 15 Hemochromatosis 10/05/2015 [facility] Hemochromatosis See Comment N 16 Hereditary Dna [address] [place] [place] [address] [phone] Hemochromatosis Specimen WB Whole Blood N Hemochromatosis Method See Comment N 17 Hemochromatosis Results See Comment N 18 Hemochromatosis Interpretation See Comment N 19 Hemochromatosis Reviewed By See Comment N 20 Laboratory test 10/05/2015 [facility] Creatine 745 U/L High 10 -223 [address] Kinase(CK) [place] [address] [phone] Comp Metabolic 10/05/2015 [facility] Sodium 135 N 133-[address] mmol/[place] [address] [phone] Potassium 4.1 mmol/L N 3.5-5.0 Chloride 102 mmol/L N 101-111 Co2 Carbon Dioxide 27 mmol/L N 22-32 Anion Gap 6 mmol/L N 2-11 Glucose 121 mg/dL High 70-100 Blood Urea Nitrogen 17 mg/dL N 6-24 Creatinine 1.04 mg/dL N 0.67-1.17 BUN/Creatinine Ratio 16.3 N 8-20 Calcium 9.2 mg/dL N 8.6-10.3 Total Protein 6.7 g/dL N 6.4-8.9 Albumin 4.3 g/dL N 3.2-5.2 Globulin 2.4 g/dL N 2-4 Albumin/Globulin Ratio 1.8 N 1-3 Total Bilirubin 0.60 mg/dL N 0.2-1.0 Alkaline Phosphatase 63 U/L N 34-104 Alt 78 U/L High 7-52 Ast 75 U/L High 13-39 Egfr Non- 75.0 N >60 Egfr 96.4 N >60 22 Laboratory 08/30/2015 [facility] Smooth Negative N Negative 23 test finding [address] [place] [address] Antibody [phone] Hepatitis 08/30/2015 [facility] Hepatitis C Nonreactive N Nonreactive 24 Acute Panel [address] [place] [address] [phone] Hepatitis A AB Igm Nonreactive N Nonreactive 25 Hepatitis B Core AB Igm Nonreactive N Nonreactive 26 Hepatitis B Surface Ag Nonreactive N Nonreactive 27 Laboratory test 08/30/2015 [facility] Rheumatoid 74 IU/mL Abnormal <15 [address] [place] [address] [phone] Cyclic Citrullinated Pep Igg <15.6 U N 29 Ferritin 411.5 ng/mL High 24-336 30 Hla B27 08/30/2015 [facility] Hla B27 Negative N [address] [place], [place] [id number] [phone] Hla B27 Interp See Comment N 32 Laboratory test 08/30/2015 [facility] Erythrocyte Sed 5 mm/Hr N 0-20 [address] [place] [address] [phone] 1 SPONDYLOLISTHESIS, LUMBAR REGION,OTHER INTERVENTE 2 SEE RESULTS BELOW [id number] CANC CHIPS 5CC TRANSFUSED 03/22/18 0719 3 SEE RESULTS BELOW [id number] DBX 10.0 TRANSFUSED 03/22/18 0719 4 Because ethnic data is not always readily available, this report includes an eGFR for both -Americans and non- Americans. The National Kidney Disease Education Program (NKDEP) does not endorse the use of the MDRD equation for patients that are not between the ages of 18 and 70, are , have extremes of body size, muscle mass, or nutritional status, or are non- or non-. According to the National Kidney Foundation, irrespective of diagnosis, the stage of the disease is based on the level of kidney function: Stage Description GFR(mL/min/1.73 m(2)) 1 Kidney damage with normal or decreased GFR 90 2 Kidney damage with mild decrease in GFR 60-89 3 Moderate decrease in GFR 30-59 4 Severe decrease in GFR 15-29 5 Kidney failure <15 (or dialysis) 5 Please check with his next lab draw next week 6 Acute inflammation: >10.00 7 Please check with his next lab draw next week 8 Because ethnic data is not always readily available, this report includes an eGFR for both -Americans and non- Americans. The National Kidney Disease Education Program (NKDEP) does not endorse the use of the MDRD equation for patients that are not between the ages of 18 and 70, are , have extremes of body size, muscle mass, or nutritional status, or are non- or non-. According to the National Kidney Foundation, irrespective of diagnosis, the stage of the disease is based on the level of kidney function: Stage Description GFR(mL/min/1.73 m(2)) 1 Kidney damage with normal or decreased GFR 90 2 Kidney damage with mild decrease in GFR 60-89 3 Moderate decrease in GFR 30-59 4 Severe decrease in GFR 15-29 5 Kidney failure <15 (or dialysis) 9 Desirable <150 Borderline high 150-199 High 200-499 Very High >500 10 Desirable <200 Borderline high 200-239 High >239 11 Low <40 Desirable: 40-60 High: >60 12 Desirable: <100 mg/dL Near Optimal: 100-129 mg/dL Borderline High: 130-159 mg/dL High: 160-189 mg/dL Very High: >189 mg/dL 13 Test Performed by: [place] [address] Director Of Sales: Tr Valentine II, M.D., Ph.D. 14 this week please 15 Acute inflammation: >10.00 16 RESULT: COMPLEX (SEE RESULT AND INTERPRETATION) 17 A multiplex PCR based assay utilizing the [employer] Array platform was used to test for the following three mutations in the HFE gene; C282Y, H63D, and S65C. Because of the minimal effect on iron metabolism associated with the S65C mutation, it is only reported when it is found with the C282Y mutation (i.e. if the patient has the C282Y/S65C genotype). 18 C282Y: Not detected. H63D: Not detected. 19 This result reduces the risk but does not rule out either a diagnosis of or predisposition for hereditary hemochromatosis (HH). In the [place] population, approximately 5 to 8% of individuals with HH do not have either the p.C282Y or p.H63D mutation. For other ethnicities, the proportion of individuals with HH who do not have either the p.C282Y or p.H63D alteration may differ. This assay does not rule out the presence of other disease-causing mutations in the HFE gene or in other genes associated with hemochromatosis. Genotyping results should be interpreted in the context of clinical findings, family history, and other laboratory testing (e.g. serum transferrin-iron saturation and serum ferritin). Genetic testing and other laboratory testing of an affected family member can determine if this result is of predictive value for this individual. A genetic consultation may be of benefit. ADDITIONAL INFORMATION An online research opportunity called [employer] a project of [employer], is available for the recipient of this genetic test. This patient registry collects de-identified genetic and health information to advance the knowledge of genetic variants. [facility] is a collaborator of [employer]. This may not be applicable for all tests. Test results should be interpreted in the context of clinical findings, family history, and other laboratory data. Misinterpretation of results may occur if the information provided is inaccurate or incomplete. Rare polymorphisms exist that could lead to false-negative or false-positive results. If results obtained do not match the clinical findings, additional testing should be considered. Bone Marrow transplants from allogenic donors will interfere with testing. Call [facility] for instructions for testing patients who have received a bone marrow transplant. Multiple in-silico evaluation tools may have been used to assist in the interpretation of these results. Of note, the sensitivity and specificity of these tools for the determination of pathogenicity is currently unvalidated. Laboratory developed test. PDF Report available at: [email or web address] RESULT: Edward Angulo, Ph.D Test Performed by: [address] [address] Director Of Sales: Tr Valentine II, M.D., Ph.D. 21 this week please 22 Because ethnic data is not always readily available, this report includes an eGFR for both -Americans and non- Americans. The National Kidney Disease Education Program (NKDEP) does not endorse the use of the MDRD equation for patients that are not between the ages of 18 and 70, are , have extremes of body size, muscle mass, or nutritional status, or are non- or non-. According to the National Kidney Foundation, irrespective of diagnosis, the stage of the disease is based on the level of kidney function: Stage Description GFR(mL/min/1.73 m(2)) 1 Kidney damage with normal or decreased GFR 90 2 Kidney damage with mild decrease in GFR 60-89 3 Moderate decrease in GFR 30-59 4 Severe decrease in GFR 15-29 5 Kidney failure <15 (or dialysis) 23 Test Performed by: [place] [address] Director Of Sales: Tr Valentine II, M.D., Ph.D. 24 Please check this week please 25 Please check this week please 26 Please check this week please 27 Please check this week please 28 Test Performed by: [place] [address] Director Of Sales: Tr Valentine II, M.D., Ph.D. 29 REFERENCE VALUE <20.0 (Negative) Test Performed by: [place] [address] Director Of Sales: Tr Valentine II, M.D., Ph.D. 30 Please check this week please 31 REFERENCE VALUE Not Applicable 32 RESULT: HLA-B27 antigen was not detected. ADDITIONAL INFORMATION Method: Flow Cytometry Performing Laboratory CLIA# [id number] Test Performed by: [address] [address] Director Of Sales: Tr Valentine II, M.D., Ph.D. 33 Please check this week please Procedures Date Code Description Status 03/22/2018 88470 James/Facet/Foraminotomy;Vertebral Segment; Lumbar Completed 03/22/2018 82129 James/Facet/Foraminotomy;Vertebral Segment; Lumbar Completed 03/22/201888179 Non-Segmental Instrumentation Posterior 1 Interspace Completed 03/22/201807561 Non-Segmental Instrumentation Posterior 1 Interspace Completed 03/22/2018 15400 Arhtrodesis Post Lateral W/Lami-Lumbar Completed 03/22/201832806 Arhtrodesis Post Lateral W/Lami-Lumbar Completed 03/22/2018 Autograft For Spine Surgery (Incls Harvesting The Graft) Completed 03/22/2018 Allograft For Spine Surgery, Morselized Completed 03/10/2018 10789 James/Facet/Foraminotomy;Vertebral Segment; Lumbar Completed 03/10/2018 03769 Use Of Operating Microscope Completed 02/02/2017 82666 Sleep Study Unattended,HRT Rate,Oxygen Sat,Resp Completed Effort/Airflow 02/02/2017 93247 Bronchospasm Provocation Evalu Completed 01/28/2017 26608 Diffusing Capacity Completed 01/28/2017 49643 Plethysmography Determination Lung Volumes & Per Airway Completed Resist 01/28/2017 24904 Pulmonary Function><Bronchodil Completed 07/30/2011 03821 Color Flow Doppler/Interp & Reprt Completed 07/30/2011 57251 Pulse Wave/Continuous-Interp.RPT Completed 07/30/2011 21478 ECHO Transthorasic Realtime 2D W Doppler & Color Flow Hosp Completed Encounters Type Date Location Provider Dx Diagnosis Office Visit 03/09/2018 Neurosurgery Navid Lemus, M43.16 Spondylolisthesis 9:00a [facility] , lumbar region M51.36 Other intervertebral disc degeneration, lumbar region Office Visit 01/03/2018 8:00a Rheumatology Abhishek Sanabria, M05.79 Rheu arthritis [facility] w rheu factor mult site w/o org/sys involv Z79.899 Other custodial (current) drug therapy M79.1 Myalgia M51.36 Other intervertebral disc degeneration, lumbar region Office Visit 04/27/2017 9:20a Rheumatology Abhishek Sanabria M05.79 Rheu arthritis [facility] Janet w rheu factor mult site w/o org/sys involv Z79.899 Other terminal make up operator (current) drug therapy M79.1 Myalgia M51.36 Other intervertebral disc degeneration, lumbar region Office Visit 02/19/2017 9:15a Pulmonology And Shireen G47.33 Obstructive sleep Sleep [facility] Farzad apnea (adult) [facility] (pediatric) J45.909 Unspecified asthma, uncomplicated Office Visit 01/19/2017 11:00a Pulmonology And Shireen R06.02 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 of Sleep [facility]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 R06.83 Snoring R06.81 Apnea, not elsewhere classified R40.0 Somnolence Office Visit 07/27/2016 8:00a Rheumatology Abhishek Sanabria M05.79 Rheu arthritis [facility] Janet w rheu factor mult site w/o org/sys involv Z79.899 Other terminal make up operator (current) drug therapy M79.1 Myalgia Office Visit 01/01/2016 8:00a Rheumatology Abhishek Sanabria M05.79 Rheu arthritis [facility] Janet w rheu factor mult site w/o org/sys involv Z79.899 Other terminal make up operator (current) drug therapy M79.1 Myalgia M06.4 Inflammatory polyarthropathy Office Visit 10/01/2015 8:20a Rheumatology Abhishek Sanabria M05.79 Rheu arthritis [facility] Janet w rheu factor mult site w/o org/sys involv Z79.899 Other terminal make up operator (current) drug 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 polyarthropathy R76.0 Raised antibody titer M79.1 Myalgia R74.0 Nonspec elev of levels of transamns & lactic acid dehydrgnse Office Visit 06/04/2015 2:00p Orthopedic Robert Rush, S43.422A Sprain of left Services Of rotator cuff Kaila woodward, initial encounter Plan of Treatment Future Appointment(s):05/16/2018 2:30 pm - Danielle Finn PA-C at Neurosurgery [facility]07/18/2018 8:00 am - Abhishek Sanabria M.D. at Rheumatology [facility]04/13/2018 - RANI Love-CZ48.89 Encounter for other specified surgical aftercareNew Therapy:Physical TherapyFollow up:4 weeks
--- OUTSIDE RECORDS SUMMARY | 2018-04-23 10:54 | XMS REPORT | Continuity of Care Document ---
:1965 External Reference #:[id number] Author Name Cherie Virk Care Team Providers Name Role Phone Evin Barton MD Primary Care Physician Unavailable Payers Type Date Identification Numbers Payment Provider Subscriber Effective: Policy Number: [id number] ariana Kellen Dai 2017 PayID: [id number] [address] [address] [place] [address] Advance Directives Description No Information Available Problems [...] Use Denies Drug Use Smoking Status Reviewed: 03/30/18 Patient has never smoked Exercise Type/Frequency Exercises regularly Allergies, Adverse Reactions, Alerts Description No Known Drug Allergies Medications Medication Date Status Form Strength Qnty SIG Indications Ordering Provider Ibuprofen 01/03 Active Tablets 200mg Take 1 as M05.79 needed Janet Sanabria Hydroxychloroquine 07/13 Active Tablets 200mg 20tab take two Zsofia Sulfate s tablets by Brooks, mouth daily 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 01/03 as needed [...] tablet at - bedtime 01/18 Preservision Areds Hx Capsules 1 tab by Unknown /0000 mouth once - a day 04/27 Immunizations Description No Information Available Vital Signs Date Vital Result Comment 03/30/2018 3:07pm Height 71 inches 5'11" BP [...] Result H/L Range Note Laboratory test 03/21/2018 [facility] Cancellous Chips SEE RESULTS 1, [address] BELO <[place] [address] NOTE> [phone] DBX 10.0 SEE RESULTS BELO <SEE NOTE> 3 Basic Metabolic Panel 03/16/2018 [facility] Sodium 136 mmol/L N [address] [place] [address] [phone] Potassium 3.8 mmol/L N 3.5-5.0 Chloride 97 mmol/L Low 101-111 Co2 Carbon Dioxide 30 mmol/L N 22-32 Anion Gap 9 mmol/L N 2-11 Glucose 95 mg/dL N 70-100 Blood Urea Nitrogen 25 mg/dL High 6-24 Creatinine 1.16 mg/dL N 0.67-1.17 BUN/Creatinine Ratio 21.6 High 8-20 Calcium 9.7 mg/dL N 8.6-10.3 Egfr Non- 65.4 >60 Egfr 79.1 >60 4 CBC No Diff 03/16/2018 [facility] White Blood 5.9 10^3/uL N 3.5-10.8 [place] [address] [phone] Red Blood Count 4.93 10^6/uL N 4.00-5.40 [...] fL N 7.4-10.4 Type & Screen 03/16/2018 [facility] Patient Blood [place] [address] [phone] Antibody Screen NEGATIVE Laboratory test 01/08/2016 [facility] Creatine 718 U/L High 10 -223 5 finding [facility] Kinase(CK) [place] [address] [phone] C Reactive Protein < 1.00 mg/L N < 5.00 6 Erythrocyte Sed Rate 5 mm/Hr N 0-20 7 CBC Auto Diff 01/08/2016 [facility] White Blood 5.4 10^3/uL N 3.5-10.[address] [place] [address] [phone] Red Blood Count 5.18 10^6/uL N 4.0-5.4 [...] % 0 N Comp Metabolic Panel 01/08/2016 [facility] Sodium 137 mmol/L N 133-[address] [place] [address] [phone] Potassium 4.2 mmol/L N 3.5-5.0 Chloride 99 [...] 90.4 N >60 8 Lipid Profile 01/08/2016 [facility] Triglycerides 218 mg/dL N 9 (Trig/Chol/HDL) [address] [place] [address] [phone] Cholesterol 246 mg/dL N 10 HDL Cholesterol 53.9 mg/dL N 11 LDL Cholesterol 149 mg/dL N 12 Laboratory test 01/08/2016 [facility] Aldolase 6.8 U/L N <7.7 [address] [place] [address] [phone] CBC Auto Diff 10/05/2015 [facility] White Blood 5.6 N 3.5- 10.[address] Count 10^3/[place] [address] [phone] Red Blood Count 5.27 10^6/uL N 4.0-5.4 [...] Cells % 0 N Laboratory test 10/05/2015 [facility] Erythrocyte Sed 7 mm/Hr N 0-20 [address] [place] [address] [phone] C Reactive Protein 1.89 mg/L N < 5.00 15 Hemochromatosis 10/05/2015 [facility] Hemochromatosis See Comment N 16 Hereditary Dna [address] [place] [address] [phone] Hemochromatosis Specimen WB Whole Blood N Hemochromatosis Method See Comment N 17 Hemochromatosis Results See Comment N 18 Hemochromatosis Interpretation See Comment N 19 Hemochromatosis Reviewed By See Comment N 20 Laboratory test 10/05/2015 [facility] Creatine 745 U/L High 10 -223 [address] Kinase(CK) [place] [address] [phone] Comp Metabolic 10/05/2015 [facility] Sodium 135 N 133-[address] mmol/L [place], [place] [address] [phone] Potassium 4.1 mmol/L N 3.5-5.0 Chloride 102 [...] Egfr 96.4 N >60 22 Laboratory 08/30/2015 [facility] Smooth Negative N Negative 23 test finding [address] [place] [address] Antibody [phone] Hepatitis 08/30/2015 [facility] Hepatitis C Nonreactive N Nonreactive 24 Acute Panel [address] [place] [address] [phone] Hepatitis A AB Igm Nonreactive N Nonreactive 25 Hepatitis B Core AB Igm Nonreactive N Nonreactive 26 Hepatitis B Surface Ag Nonreactive N Nonreactive 27 Laboratory test 08/30/2015 [facility] Rheumatoid 74 IU/mL Abnormal <15 [address] [place] [address] [phone] Cyclic Citrullinated Pep Igg <15.6 U N 29 Ferritin 411.5 ng/mL High 24-336 30 Hla B27 08/30/2015 [facility] Hla B27 Negative N [address] [place] [address] [phone] Hla B27 Interp See Comment N 32 Laboratory test 08/30/2015 [facility] Erythrocyte Sed 5 mm/Hr N 0-20 [address] [place] [address] [phone] 1 SPONDYLOLISTHESIS, LUMBAR REGION,OTHER INTERVENTE 2 SEE RESULTS BELOW [id number] CANC CHIPS 5CC TRANSFUSED 03/22/18 0719 3 SEE RESULTS BELOW [id number] DBX 10.0 TRANSFUSED 03/22/18 0719 4 Because [...] High: >189 mg/dL 13 Test Performed by: [place] [address] Building Maintenance Superintendent: Tr Valentine II, M.D., Ph.D. 14 this week please 15 Acute inflammation: >10.00 16 RESULT: COMPLEX (SEE RESULT AND INTERPRETATION) 17 A multiplex PCR based assay utilizing the [employer] Array platform was used to test for [...] for hereditary hemochromatosis (HH). In the [place] population, approximately 5 to 8% of individuals [...] ADDITIONAL INFORMATION An online research opportunity called [employer] a project of [employer], is available for the recipient of this genetic test. This patient registry collects de-identified genetic and health information to advance the knowledge of genetic variants. [facility] is a collaborator of [employer]. This may not be applicable for all [...] allogenic donors will interfere with testing. Call [facility] for instructions for testing patients who have received a bone marrow transplant. Multiple in-silico evaluation tools may have been used to assist in the interpretation of these results. Of note, the sensitivity and specificity of these tools for the determination of pathogenicity is currently unvalidated. Laboratory developed test. PDF Report available at: [email or web address] RESULT: Edward Angulo, Ph.D Test Performed by: [address] [address] Building Maintenance Superintendent: Tr Valentine II, M.D., Ph.D. 21 this [...] <15 (or dialysis) 23 Test Performed by: [place] [address] Building Maintenance Superintendent: Tr Valentine II, M.D., Ph.D. 24 Please check this week please 25 Please check this week please 26 Please check this week please 27 Please check this week please 28 Test Performed by: [place] [address] Building Maintenance Superintendent: Tr Valentine II, M.D., Ph.D. 29 REFERENCE VALUE <20.0 (Negative) Test Performed by: [place] [address] Building Maintenance Superintendent: Tr Valentine II, M.D., Ph.D. 30 Please check this week please 31 REFERENCE VALUE Not Applicable 32 RESULT: HLA-B27 antigen was not detected. ADDITIONAL INFORMATION Method: Flow Cytometry Performing Laboratory CLIA# [id number] Test Performed by: [address] [address] Building Maintenance Superintendent: Tr Valentine II, M.D., Ph.D. 33 Please check this week please Procedures Date Code Description Status 03/22/2018 93631 James/Facet/Foraminotomy;Vertebral Segment; Lumbar Completed 03/22/2018 67264 James/Facet/Foraminotomy;Vertebral Segment; Lumbar Completed 03/22/2018 81017 Non-Segmental Instrumentation Posterior 1 Interspace Completed 03/22/201873995 Non-Segmental Instrumentation Posterior 1 Interspace Completed 03/22/201873846 Arhtrodesis Post Lateral W/Lami-Lumbar Completed 03/22/2018 Arhtrodesis Post Lateral W/Lami-Lumbar Completed 03/22/2018 Autograft For Spine Surgery (Incls Harvesting The Graft) Completed 03/22/2018 Allograft For Spine Surgery, Morselized Completed 03/10/2018 91197 James/Facet/Foraminotomy;Vertebral Segment; Lumbar Completed 03/10/2018 95602 Use Of Operating Microscope Completed 02/02/2017 12901 Sleep Study Unattended,HRT Rate,Oxygen Sat,Resp Completed Effort/Airflow 02/02/2017 75995 Bronchospasm Provocation Evalu Completed 01/28/2017 18592 Diffusing Capacity Completed 01/28/2017 82818 Plethysmography Determination Lung Volumes & Per Airway Completed Resist 01/28/2017 27033 Pulmonary Function><Bronchodil Completed 07/30/2011 28614 Color Flow Doppler/Interp & Reprt Completed 07/30/2011 25694 Pulse Wave/Continuous-Interp.RPT Completed 07/30/2011 47744 ECHO Transthorasic Realtime 2D W Doppler & Color Flow Hosp Completed Encounters Type Date Location Provider Dx Diagnosis Office Visit 03/09/2018 Neurosurgery Navid Lemus, M43.16 Spondylolisthesis 9:00a [facility] , lumbar region M51.36 Other intervertebral disc degeneration, lumbar region Office Visit 01/03/2018 8:00a Rheumatology Ahbishek Sanabria, M05.79 Rheu arthritis [facility] w rheu factor mult site w/o org/sys involv Z79.899 Other care home (current) drug therapy M79.1 Myalgia M51.36 Other intervertebral disc degeneration, lumbar region Office Visit 04/27/2017 9:20a Rheumatology Abhishek Sanabria M05.79 Rheu arthritis [facility] GurmeetKathleen w rheu factor mult site w/o org/sys involv Z79.899 Other care home (current) drug therapy M79.1 Myalgia M51.36 Other intervertebral disc degeneration, lumbar region Office Visit 02/19/2017 9:15a Pulmonology And Shireen G47.33 Obstructive sleep Sleep [facility] Farzad apnea (adult) [facility] (pediatric) J45.909 Unspecified asthma, uncomplicated Office Visit 01/19/2017 11:00a Pulmonology And Shireen R06.02 Shortness of Sleep [facility] Farzad breath [facility] R06.83 Snoring R06.81 Apnea, not elsewhere classified R40.0 Somnolence Office Visit 07/27/2016 8:00a Rheumatology Abhishek Sanabria M05.79 Rheu arthritis [facility] Janet rheu factor mult site w/o org/sys involv Z79.899 Other care home (current) drug therapy M79.1 Myalgia Office Visit 01/01/2016 8:00a Rheumatology Abhishek Sanabria M05.79 Rheu arthritis [facility] GurmeetKathleen rheu factor mult site w/o org/sys involv Z79.899 Other care home (current) drug therapy M79.1 Myalgia M06.4 Inflammatory polyarthropathy Office Visit 10/01/2015 8:20a Rheumatology Abhishek Sanabria M05.79 Rheu arthritis [facility] GurmeetKathleen w rheu factor mult site w/o org/sys involv Z79.899 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 polyarthropathy R76.0 Raised antibody titer M79.1 Myalgia R74.0 Nonspec elev of levels of transamns & lactic acid dehydrgnse Office Visit 06/04/2015 2:00p Orthopedic Robert Spannen, S43.422A Sprain of left Services Of rotator cuff Kaila woodward, initial encounter Plan of Treatment Future Appointment(s):04/13/2018 2:30 pm - Danielle Finn PA-C at [facility]07/18/2018 8:00 am - Abhishek Sanabria M.D. at [facility]ology [facility]03/30/2018 - RANI Love-CZ48.89 Encounter for other specified surgical aftercareFollow up:3 weeks
--- OUTSIDE RECORDS SUMMARY | 2018-04-23 10:54 | XMS REPORT | Continuity of Care Document ---
:1965 External Reference #:[id number] Author Name Ira Gonzales O.D. Address [address] [place] [address] Care Team Providers Name Role Phone Evin Barton M.D. Primary Care Physician Unavailable Payers Type Date Identification Numbers Payment Provider Subscriber Policy Number: [id number] [facility] Kellen Gruberburn Group Number: [id number] [address] [id number] Group Name: [id number] [place] [address] PayID: [id number] Advance Directives Description No Information Available Problems Date Description Provider Status Onset: Essential hypertension Active Onset: Rheumatoid arthritis Active Onset: 11/06/2015 Taking medication Ira Gonzales O.D. 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 /2016 % eyes as william Gonzales O.D. Amlodipine 00 Active Tablets 10mg Unknown Besylate /0000 Vascepa Active Capsules 1gm Unknown /0000 Centrum Silver 00 Active Tablets Unknown /0000 Glucosamine 00 Active Capsules 1500Com Unknown Chondroitin 1500 /0000 Complex Hydroxychloroquine Active Tablets 200mg 1 tab am 1 Unknown Sulfate /0000 tab pm Androgel Pump Active Gel 20.25mg/A Apply 6 Unknown /0000 ct Pumps Once (1.62%) Daily In The Morning Lisinopril-Hydroch Active Tablets 20-12.5mg Take 2 Unknown lorothiazide /0000 Tablets By Mouth Once Daily Propranolol HCL ER Active Caps ER 60mg Take One Unknown /0000 24HR Capsule 60MG By Mouth Daily Replaces Metoprolol Ibuprofen 200 Active Tablets 200mg prn Unknown /0000 Lisinopril Hx Tablets 40mg Take 1 Unknown /0000 Tablet By - Mouth Once 08/06 Diclofenac Sodium Hx Tablets 75mg Unknown /0000 DR - 04/07 Metoprolol Hx Tablets 25mg Take 1 Unknown Succinate ER /0000 ER 24HR Tablet By - Mouth Daily 04/07 Immunizations Description No Information Available Vital Signs Description No Information Available Results Description No Information Available Procedures Date Code Description Status 08/09/2017 99999 Scanning Computerized Opthalmic Diagnostic Posterior Seg Completed Retina 08/09/2017 14638 Visual Field Exam Extended Completed 08/09/2017 30600 Determination Of Refractive State Completed 08/09/2017 82271 Est Patient Comprehensive Exam Completed 02/08/2017 63937 Scanning Computerized Opthalmic Diagnostic Posterior Seg Completed Retina 02/08/2017 33800 Est Patient Comprehensive Exam Completed 08/07/2016 40187 Scanning Computerized Opthalmic Diagnostic Posterior Seg Completed Retina 08/07/2016 54536 Visual Field Exam Extended Completed 08/07/2016 33337 Est Patient Comprehensive Exam Completed 02/06/2016 29253 Est Patient Comprehensive Exam Completed 11/06/2015 20972 Scanning Computerized Opthalmic Diagnostic Posterior Seg Completed Retina 11/06/2015 22657 Visual Field Exam Extended Completed 11/06/2015 99505 New Patient Comprehensive Exam Completed Encounters Description No Information Available Plan of Treatment 04/08/2018 - Ira Gonzales O.D.Z79.899 Other alf (current) drug therapyComments:Smoking can increase the risk of developing or worsening any eye related disease, as well as affect your overall health. If you are a smoker , we strongly recommend that you quit.If you are not a smoker, we strongly recommend that you do not start.Follow up:6 Month Follow Up Visual Field, Central 10 OCT MAC Color You can expect to have your eyes dilated at your next visit. If Dr. Gonzales orders any additional testing, it may require extra time. We recommend that you bring sunglasses, as dilation drops often make you light sensitive until they wear off.We always recommend you bring someone to drive you home if you are uncomfortable driving with your eyes dilated. If you have any questions before your next visit, feel free to call our office at [phone].M06.9 Rheumatoid arthritis, azsxvcflzysR81.721 Serous detachment of retinal pigment epithelium, right eyeH25.13 Age-related nuclear cataract, bilateralComments:You have been diagnosed with cataracts. If you are happy with your vision as it is now, then we willsee you at your next scheduled appointment. If you feel like your vision is getting worse before your scheduled appointment, please call Lisa Preciado at [phone].
[2018-04-23 11:11] VITALS: BP 117/78
--- NOTE | 2018-04-23 11:28 | UC ---
Throat Pain/Nasal Gurdeep HPI - HPI Summary HPI Summary: 53-year-old male comes to clinic with a chief complaint of sinus congestion and rhinorrhea cough for more than a week. No fevers. He's been trying over-the- counter medications was does initially decrease the rhinorrhea however now he feels like his sinuses are congested and he cannot get any more rhinorrhea out. The rhinorrhea is yellow. - History of Current Complaint Chief Complaint: UCRespiratory Stated Complaint: SINUS COMPLAINT Time Seen by Provider: 04/23/18 11:18 Pain Intensity: 0 - Allergies/Home Medications Allergies/Adverse Reactions: Allergies Allergy/AdvReac Type Severity Reaction Status Date / Time No Known Allergies Allergy Verified 04/23/18 11:03 PMH/Surg Hx/FS Hx/Imm Hx Previously Healthy: Yes Cardiovascular History: Hypertension - Surgical History Surgical History: Yes Surgery Procedure, Year, and Place: Hernia repair at age 14. "Rods" placed to back February 2018 - Family History Known Family History: Positive: Cardiac Disease - father, diabetes also, Hypertension - father, Diabetes - father - Social History Alcohol Use: Daily Alcohol Amount: 6 beers day Substance Use Type: None Smoking Status (MU): Never Smoked Tobacco - Immunization History Most Recent Influenza Vaccination: DID NOT GET THIS SEASON Most Recent Pneumonia Vaccination: none Review of Systems All Other Systems Reviewed And Are Negative: Yes Constitutional: Positive: Negative Skin: Positive: Negative Eyes: Positive: Negative ENT: Positive: Sore Throat, Nasal Discharge, Sinus Congestion, Sinus Pain/ Tenderness Respiratory: Positive: Cough Cardiovascular: Positive: Negative Gastrointestinal: Positive: Negative Motor: Positive: Negative Neurovascular: Positive: Negative Musculoskeletal: Positive: Negative Neurological: Positive: Negative Psychological: Positive: Negative Is Patient Immunocompromised?: No Physical Exam Triage Information Reviewed: Yes Appearance: No Pain Distress, Well-Nourished, Ill-Appearing - mild Vital Signs: Initial Vital Signs Temp 98.6 F 04/23/18 11:01 Pulse 77 04/23/18 11:01 Resp 20 04/23/18 11:01 BP 117/78 04/23/18 11:01 Pulse Ox 96 04/23/18 11:01 Vital Signs Reviewed: Yes Eye Exam: Normal Eyes: Positive: Conjunctiva Clear ENT: Positive: Pharyngeal erythema, Nasal congestion, Nasal drainage, TMs normal Neck exam: Normal Neck: Positive: Supple Respiratory: Positive: Lungs clear, Normal breath sounds, No respiratory distress Cardiovascular: Positive: RRR Musculoskeletal Exam: Normal Musculoskeletal: Positive: Strength Intact, ROM Intact Neurological Exam: Normal Neurological: Positive: Alert, Muscle Tone Normal Psychological Exam: Normal Psychological: Positive: Abnormal Response To Family Skin Exam: Normal Throat Pain/Nasal Course/Dx - Course Course Of Treatment: FOLLOW UP WITH YOUR DOCTOR IF NOT COMPLETELY IMPROVED. GET RECHECKED FOR ANY WORSENING OF YOUR CONDITION OR QUESTIONS OR CONCERNS. DISCUSSED VIRAL VERSES BACTERIAL INFECTION AND THE ROLE OF ANTIBIOTICS. THE PATIENT WISHES TO BE ON ANTIBIOTIC AT THIS TIME. - Differential Dx/Diagnosis Provider Diagnosis: Sinusitis Discharge - Sign-Out/Discharge Documenting (check all that apply): Patient Departure All imaging exams completed and their final reports reviewed: No Studies - Discharge Plan Condition: Stable Disposition: HOME Prescriptions: Amoxicillin/Clavulanate TAB* [Augmentin TAB 875*] 875 mg PO BID #20 tab Patient Education Materials: Sinusitis (ED) Referrals: Evin Barton MD [Primary Care Provider] - Additional Instructions: FOLLOW UP WITH YOUR DOCTOR IF NOT COMPLETELY IMPROVED. GET RECHECKED FOR ANY WORSENING OF YOUR CONDITION OR QUESTIONS OR CONCERNS. - Billing Disposition and Condition Condition: STABLE Disposition: Home
== END 2018-04-23 11:35 | disposition home or self-care (01) ==
LOC: UCEAST 10:48
DX: J32.9 Chronic sinusitis, unspecified (principal); I10 Essential (primary) hypertension
CPT/HCPCS: 99212; G0463

== ENCOUNTER 2018-06-28 07:38 | Emergency (ER) | payer OTHER ==
--- NOTE | 2018-06-28 08:40 | UC ---
Throat Pain/Nasal Gurdeep HPI - HPI Summary HPI Summary: 3 days progressive sinus pressure, greeen secretion, tactile temp, ears full, sore throat. no rash, no myalgia. h/o sinus infection. No OTC meds taken no sob , cough, chest pain Medications reviewed - History of Current Complaint Chief Complaint: UCGeneralIllness Stated Complaint: SINUS ISSUE Time Seen by Provider: 06/28/18 08:40 Hx Obtained From: Patient Onset/Duration: Gradual Onset Severity: Moderate Pain Intensity: 3 - Allergies/Home Medications Allergies/Adverse Reactions: Allergies Allergy/AdvReac Type Severity Reaction Status Date / Time No Known Allergies Allergy Verified 06/28/18 07:54 PMH/Surg Hx/FS Hx/Imm Hx Previously Healthy: Yes - Surgical History Surgical History: Yes Surgery Procedure, Year, and Place: Hernia repair at age 14. "Rods" placed to back February 2018 - Family History Known Family History: Positive: Cardiac Disease - father, diabetes also, Hypertension - father, Diabetes - father, Non-Contributory - Social History Occupation: Employed Full-time Lives: With Family Alcohol Use: Daily Alcohol Amount: 6 beers day Substance Use Type: None Smoking Status (MU): Never Smoked Tobacco - Immunization History Most Recent Influenza Vaccination: DID NOT GET THIS SEASON Most Recent Pneumonia Vaccination: none Review of Systems All Other Systems Reviewed And Are Negative: Yes Constitutional: Positive: Fever - tactile, Fatigue Eyes: Positive: Negative ENT: Positive: Sore Throat, Ear Ache, Nasal Discharge, Sinus Congestion, Sinus Pain/Tenderness Respiratory: Positive: Negative Cardiovascular: Positive: Negative Physical Exam - Summary Physical Exam Summary: Vital Signs Reviewed: Yes A+Ox3, no distress Eyes: Conjunctiva Clear, JASON. EOM intact and full ENT: Hearing grossly normal TM x 2 clear, turbiantes inflammed and boggy, + PND , +TTP max sinuses b/l, mmoist, uvula midline, no exudate, no erythema Neck: Positive: Supple Respiratory: Positive: No respiratory distress, No accessory muscle use + CTA throughout no w/r Cardiovascular: RRR nl s1, s2 no m/r CBT <2 sec abd soft + BS nt/nd no guarding, no distension Musculoskeletal Exam: OSUNA x 4 without difficulty Strength Intact, ROM Intact Neurological: Positive: Alert, + sensation throughout Psychological: Positive: Normal Response To Family Skin: Positive: no rash, no ecchymosis Triage Information Reviewed: Yes Vital Signs: Initial Vital Signs Temp 98.1 F 06/28/18 07:52 Pulse 81 06/28/18 07:52 Resp 18 06/28/18 07:52 BP 169/102 06/28/18 07:52 Pulse Ox 97 06/28/18 07:52 Throat Pain/Nasal Course/Dx - Course Course Of Treatment: Pt with progressive head congesiton, sinus discomfort, green nasal discharge. VSS. exam c/w rhinosinusitis. abx. flonase. hydrate. motrin/apap. return precaution. humidify air. secretion precaution. BP at triage elevated -RNr equested at time of discharge - manual cuff- BP improved - Differential Dx/Diagnosis Provider Diagnosis: Rhinosinusitis Discharge - Sign-Out/Discharge Documenting (check all that apply): Patient Departure All imaging exams completed and their final reports reviewed: No Studies - Discharge Plan Condition: Stable Disposition: HOME Prescriptions: Amoxicillin PO (*) [Amoxicillin 875 MG (*)] 875 mg PO BID #20 tab Fluticasone NASAL SPRAY 50MCG* [Flonase NASAL SPRAY 50MCG*] 2 spray BOTH NARES DAILY #1 btl Patient Education Materials: Rhinosinusitis (ED) Referrals: Evin Barton MD [Primary Care Provider] - Additional Instructions: - Stay well hydrated. Drink plenty of non-alcoholic, non-caffinated beverages. - Alternate ibuprofen (Advil, Motrin) 600mg and Tylenol every 3 hours for pain or fever. Take with food. Do NOT take for more than 4-5 days. - These infections are spread by secretions - do NOT share eating or drinking utensils - clean items you share with other people such as cell phones, computer mouse, TV remote, computer tablets,etc. Once you have been antibiotics for 2 days, change your toothbrush and your pillowcase. - get plenty of restful sleep - humidify the air in the room where you sleep - boil water, run a hot steam shower, vaporizer, cups of water by heat register - use nasal spray as prescribed Your blood pressure was elevated at today's visit - Monitor closely at home and schedule a follow-up appointment with your doctor to further discuss - contact your doctor or return with questions or concerns - Billing Disposition and Condition Condition: STABLE Disposition: Home
[2018-06-28 09:59] VITALS: BP 130/84
== END 2018-06-28 09:15 | disposition home or self-care (01) ==
LOC: UCEAST 07:38
DX: J32.9 Chronic sinusitis, unspecified (principal)
CPT/HCPCS: 99212; G0463

== ENCOUNTER 2018-07-27 20:30 | Emergency (ER) | payer OTHER ==
[2018-07-27 20:56] VITALS: BP 142/90
--- NOTE | 2018-07-28 00:05 | UC ---
UC General HPI - HPI Summary HPI Summary: HAS HAD INTERMITTENT TINGLING IN RIGHT HAND FOR A FEW WEEKS. WORSE WHEN LAYING DOWN. 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 DENIES WEAKNESS OR NUMBNESS. TODAY DEVELOP A "TINGLY BURNING" SENSATION BEHIND HIS RIGHT EAR. LASTED FOR A FEW MINUTES THEN RESOLVED. WAS CONCERNED IT COULD BE RELATED SO CAME IN TO BE SEEN. - History of Current Complaint Chief Complaint: UCGeneralIllness Stated Complaint: BURNING SENSATION BEHIND EAR, AND TINGLING IN HAND Time Seen by Provider: 07/27/18 21:00 Hx Obtained From: Patient Onset/Duration: Gradual Onset, Lasting Weeks, Still Present Onset Severity: Mild Current Severity: Mild Pain Intensity: 0 - Allergy/Home Medications Allergies/Adverse Reactions: Allergies Allergy/AdvReac Type Severity Reaction Status Date / Time No Known Allergies Allergy Verified 07/27/18 20:47 PMH/Surg Hx/FS Hx/Imm Hx - Additional Past Medical History Additional PMH: RA, LOW TESTOSTERONE Endocrine History: Dyslipidemia Cardiovascular History: Hypertension - Surgical History Surgical History: Yes Surgery Procedure, Year, and Place: Hernia repair at age 14. "Rods" placed to back February 2018 - Family History Known Family History: Positive: Cardiac Disease - father, diabetes also, Hypertension - father, Diabetes - father, Non-Contributory - Social History Alcohol Use: Daily Alcohol Amount: 6 beers day Substance Use Type: None Smoking Status (MU): Never Smoked Tobacco - Immunization History Most Recent Influenza Vaccination: DID NOT GET THIS SEASON Most Recent Pneumonia Vaccination: none Review of Systems All Other Systems Reviewed And Are Negative: Yes Constitutional: Positive: Negative Skin: Positive: Negative Respiratory: Positive: Negative Cardiovascular: Positive: Negative Gastrointestinal: Positive: Negative Neurological: Positive: Paresthesia Physical Exam Triage Information Reviewed: Yes Appearance: Well-Appearing, No Pain Distress, Well-Nourished Vital Signs: Initial Vital Signs Temp 98.5 F 07/27/18 20:41 Pulse 76 07/27/18 20:41 Resp 18 07/27/18 20:41 BP 142/90 07/27/18 20:41 Pulse Ox 95 07/27/18 20:41 Vital Signs Reviewed: Yes Eyes: Positive: Conjunctiva Clear ENT: Positive: Hearing grossly normal, Pharynx normal, TMs normal Neck: Positive: Supple, Nontender, No Lymphadenopathy Respiratory Exam: Normal Cardiovascular Exam: Normal Abdomen Description: Positive: Soft Musculoskeletal: Positive: ROM Intact, No Edema Neurological: Positive: Alert, Muscle Tone Normal, Other: - NEG TINELS, NEG PHALENS Psychological: Positive: Age Appropriate Behavior Skin: Negative: Rashes Course/Dx - Course Course Of Treatment: PT REASSURED THAT NOTHING LIFE THREATENING APPARENT ON EXAM. HE HAS A F/U APPT WITH HIS PCP NEXT WEEK FOR FURTHER EVALUATION. WILL TRY A SHORT COURSE OF PREDNISONE IN THE MEANTIME. - Diagnoses Provider Diagnosis: Paresthesias in right hand Discharge - Sign-Out/Discharge Documenting (check all that apply): Patient Departure All imaging exams completed and their final reports reviewed: No Studies - Discharge Plan Condition: Stable Disposition: HOME Prescriptions: predniSONE TAB* [Deltasone 20 MG TAB*] 40 mg PO DAILY #10 tab Patient Education Materials: Peripheral Neuropathy (ED), Paresthesia (ED) Referrals: Evin Barton MD [Primary Care Provider] - (KEEP YOUR APPT NEXT WEEK) Additional Instructions: KEEP YOUR PCP FOLLOW-UP NEXT WEEK. RECOMMEND YOU HAVE LABS DONE TO EVALUATE SPECIFICALLY FOR PERIPHERAL NEUROPATHY AND METABOLIC ABNORMALITIES SUCH THYROID DISEASE. YOU MAY BENEFIT FROM NEUROLOGY REFERRAL FOR FURTHER EVALUATION. YOUR RECENT INCREASE IN EXERCISE AND WEIGHT LIFTING WITH YOUR HISTORY OF SHOULDER INJURY MAY ALSO BE EXACERBATING YOUR SYMPTOMS. A SHORT COURSE OF PREDNISONE WHICH CAN HELP WITH INFLAMMATION MAY IMPROVE YOUR SYMPTOMS. GO TO ED WITHOUT FAIL IF YOU DEVELOP SHORTNESS OF BREATH, CHEST PAIN, NAUSEA, SWEATS, DIZZINESS WORSENING NUMBNESS OR ANY OTHER CONCERNING SYMPTOMS. - Billing Disposition and Condition Condition: STABLE Disposition: Home
== END 2018-07-27 22:26 | disposition home or self-care (01) ==
LOC: UCEAST 20:30
DX: R20.2 Paresthesia of skin (principal); I10 Essential (primary) hypertension
CPT/HCPCS: 99212; G0463

== ENCOUNTER 2019-02-04 09:25 | Emergency (ER) | payer OTHER ==
--- OUTSIDE RECORDS SUMMARY | 2019-02-04 09:30 | XMS REPORT | Continuity of Care Document ---
:1965 External Reference #:[id number] Author Name Abhishek Sanabria M.D. 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 Problems Description No Information Available Social History Type Date Description Comments Sex Unknown ETOH Use Occasionally consumes alcohol ETOH Use Currently consumes alcohol daily Tobacco Use Start: Unknown Patient has never smoked Recreational Drug Use Denies Drug Use Smoking Status Reviewed: 01/10/19 Patient has never smoked Exercise Type/Frequency Exercises regularly Allergies, Adverse Reactions, Alerts Description No Known Drug Allergies Medications Active Medications SIG Qnty Indications Ordering Date Provider Sulfasalazine Take one 180tabs Abhishek Sanabria, 10/17/2018 500mg Tablets capsule/tablet M.D. daily by mouth Wrist Splint use nightly to 2units Abhishek Sanabria, 10/17/2018 Misc help with elbow M.D. tendonitis right g56.01 Elbow Support apply daily to 2units M05.79 Abhishek Sanabria, 10/17/2018 W/Encircling Support help medial M.D. Strap/Neoprene/Medium elbow tendonitis Misc as needed, right Ibuprofen Take 1 as needed M05.79 Abhishek Sanabria, 01/03/2018 200mg Tablets M.D. Hydroxychloroquine Take Two Tablets 180tabs Abhishek Sanabria, 07/13/2017 Sulfate By Mouth Daily M.D. 200mg Tablets Amlodipine Besylate 1 by mouth every Unknown 10mg day Tablets Vascepa 2 by mouth twice Unknown 1gm Capsules a day x 30 d Androgel Pump qd for 4 lbs Unknown 20.25mg/Act (1.62%) Gel Zanaflex 1 by mouth at hs Unknown 2mg Capsules prn Lisinopril-Hydrochlorothi Take Two Tablets Unknown azide By Mouth Every 20-12.5mg Tablets Day Multi Vitamin Daily 1 by mouth every Unknown Tablets day Glucosamine Chondroitin 2 by mouth every Unknown 1500 Complex day 1500Com Capsules Propranolol HCL ER Take One Capsule Unknown 120mg Caps 120MG By Mouth ER 24HR Daily Immunizations Description No Information Available Vital Signs Date Vital Result Comment 01/10/2019 1:45pm Height 71 inches 5'11" Weight 212.25 lb Heart Rate 66 /min BP Systolic Sitting 132 mmHg BP Diastolic Sitting 80 mmHg Pain Level 1 O2 % BldC Oximetry 96 % BMI (Body Mass Index) 29.6 kg/m2 10/17/2018 1:49pm Height 71 inches 5'11" Weight 215.25 lb Heart Rate 79 /min BP Systolic Sitting 132 mmHg BP Diastolic Sitting 80 mmHg Pain Level 2 O2 % BldC Oximetry 96 % BMI (Body Mass Index) 30.0 kg/m2 Results Test Date Facility Test Result H/L Range Note Laboratory test 01/09/2019 [facility] Erythrocyte Sed 0 mm/Hr Normal 0-19 [address] [place] [address] [phone] C Reactive Protein < 1.00 mg/L Normal <8.01 2 CBC Auto 01/09/2019 [facility] White Blood 4.6 10^3/uL Normal 3.5-10.[address] [place] [address] [phone] Red Blood Count 4.71 10^6/uL Normal 4.18-5.48 Hemoglobin 16.1 g/dL Normal 14.0-18.0 Hematocrit 45 % Normal 42-52 Mean Corpuscular Volume 97 fL High 80-94 Mean Corpuscular Hemoglobin 34 pg High 27-31 Mean Corpuscular HGB Conc 36 g/dL Normal 31-36 Red Cell Distribution Width 14 % Normal 10-15 Platelet Count 153 10^3/uL Normal 150-450 Mean Platelet Volume 8.2 fL Normal 7.4-10.4 Abs Neutrophils 3.0 10^3/uL Normal 1.5-7.7 Abs Lymphocytes 1.0 10^3/uL Normal 1.0-4.8 Abs Monocytes 0.6 10^3/uL Normal 0-0.8 Abs Eosinophils 0.0 10^3/uL Normal 0-0.6 Abs Basophils 0.1 10^3/uL Normal 0-0.2 Abs Nucleated RBC 0.0 10^3/uL Granulocyte % 63.8 % Lymphocyte % 21.7 % Monocyte % 12.5 % Eosinophil % 0.1 % Basophil % 1.9 % Nucleated Red Blood Cells % 0.1 Comp Metabolic 01/09/2019 [facility] Sodium 135 mmol/L Normal 135-[address] [place] [address] [phone] Potassium 4.4 mmol/L Normal 3.5-5.0 Chloride 100 mmol/L Low 101-111 Co2 Carbon Dioxide 29 mmol/L Normal 22-32 Anion Gap 6 mmol/L Normal 2-11 Glucose 101 mg/dL High 70-100 Blood Urea Nitrogen 32 mg/dL High 6-24 Creatinine 1.48 mg/dL High 0.67-1.17 BUN/Creatinine Ratio 21.6 High 8-20 Calcium 9.3 mg/dL Normal 8.6-10.3 Total Protein 6.4 g/dL Normal 6.4-8.9 Albumin 4.4 g/dL Normal 3.2-5.2 Globulin 2.0 g/dL Normal 2-4 Albumin/Globulin Ratio 2.2 Normal 1-3 Total Bilirubin 0.60 mg/dL Normal 0.2-1.0 Alkaline Phosphatase 54 U/L Normal 34-104 Alt 34 U/L Normal 7-52 Ast 46 U/L High 13-39 Egfr Non- 49.3 >60 Egfr 59.7 >60 3 Laboratory test 10/17/2018 [facility] Creatine 439 U/L High 10 -[address] Kinase(CK) [place] [address] [phone] Comp Metabolic 10/17/2018 [facility] Sodium 135 Normal 135- [address] mmol/[place] [address] [phone] Potassium 4.8 mmol/L Normal 3.5-5.0 Chloride 98 mmol/L Low 101-111 Co2 Carbon Dioxide 26 mmol/L Normal 22-32 Anion Gap 11 mmol/L Normal 2-11 Glucose 98 mg/dL Normal 70-100 Blood Urea Nitrogen 24 mg/dL Normal 6-24 Creatinine 1.12 mg/dL Normal 0.67-1.17 BUN/Creatinine Ratio 21.4 High 8-20 Calcium 9.8 mg/dL Normal 8.6-10.3 Total Protein 7.1 g/dL Normal 6.4-8.9 Albumin 4.4 g/dL Normal 3.2-5.2 Globulin 2.7 g/dL Normal 2-4 Albumin/Globulin Ratio 1.6 Normal 1-3 Total Bilirubin 0.70 mg/dL Normal 0.2-1.0 Alkaline Phosphatase 69 U/L Normal 34-104 Alt 30 U/L Normal 7-52 Ast 38 U/L Normal 13-39 Egfr Non- 68.1 >60 Egfr 82.4 >60 4 Laboratory test 10/17/2018 [facility] C Reactive 1.26 mg/L Normal <8.[address] [place] [address] [phone] CBC Auto Diff 10/17/2018 [facility] White Blood 7.3 Normal 3.5 -10.[address] Count 10^3/[place] [address] [phone] Red Blood Count 5.16 10^6/uL Normal 4.18-5.48 Hemoglobin 17.2 g/dL Normal 14.0-18.0 Hematocrit 48 % Normal 42-52 Mean Corpuscular Volume 93 fL Normal 80-94 Mean Corpuscular Hemoglobin 33 pg High 27-31 Mean Corpuscular HGB Conc 36 g/dL Normal 31-36 Red Cell Distribution Width 13 % Normal 10-15 Platelet Count 178 10^3/uL Normal 150-450 Mean Platelet Volume 8.5 fL Normal 7.4-10.4 Abs Neutrophils 4.8 10^3/uL Normal 1.5-7.7 Abs Lymphocytes 1.5 10^3/uL Normal 1.0-4.8 Abs Monocytes 0.8 10^3/uL Normal 0-0.8 Abs Eosinophils 0.2 10^3/uL Normal 0-0.6 Abs Basophils 0.1 10^3/uL Normal 0-0.2 Abs Nucleated RBC 0.0 10^3/uL Granulocyte % 66.2 % Lymphocyte % 20.1 % Monocyte % 10.4 % Eosinophil % 2.4 % Basophil % 0.9 % Nucleated Red Blood Cells % 0.1 Laboratory test 10/17/2018 [facility] Erythrocyte Sed 1 mm/Hr Normal 0-[address] [place] [address] [phone] Laboratory test 07/27/2018 [facility] C Reactive 2.64 mg/L Normal <8.01 [address] [place] [address] [phone] Erythrocyte Sed Rate 6 mm/Hr Normal 0-20 6 CBC Auto 07/27/2018 [facility] White Blood 4.7 10^3/uL Normal 3.5-10.[address] [place] [address] [phone] Red Blood Count 5.09 10^6/uL Normal 4.18-5.48 Hemoglobin 16.7 g/dL Normal 14.0-18.0 Hematocrit 48 % High 36-46 Mean Corpuscular Volume 94 fL Normal 80-94 Mean Corpuscular Hemoglobin 33 pg High 27-31 Mean Corpuscular HGB Conc 35 g/dL Normal 31-36 Red Cell Distribution Width 13 % Normal 10.5-15 Platelet Count 174 10^3/uL Normal 150-450 Mean Platelet Volume 8.6 fL Normal 7.4-10.4 Abs Neutrophils 2.4 10^3/uL Normal 1.5-7.7 Abs Lymphocytes 1.3 10^3/uL Normal 1.0-4.8 Abs Monocytes 0.6 10^3/uL Normal 0-0.8 Abs Eosinophils 0.3 10^3/uL Normal 0-0.6 Abs Basophils 0.1 10^3/uL Normal 0-0.2 Abs Nucleated RBC 0 10^3/uL Granulocyte % 50.3 % Lymphocyte % 27.5 % Monocyte % 13.7 % Eosinophil % 7.3 % Basophil % 1.2 % Nucleated Red Blood Cells % 0.1 Comp Metabolic 07/27/2018 [facility] Sodium 136 mmol/L Normal 135-[address] [place] [address] [phone] Potassium 3.9 mmol/L Normal 3.5-5.0 Chloride 100 mmol/L Low 101-111 Co2 Carbon Dioxide 26 mmol/L Normal 22-32 Anion Gap 10 mmol/L Normal 2-11 Glucose 118 mg/dL High 70-100 Blood Urea Nitrogen 20 mg/dL Normal 6-24 Creatinine 1.06 mg/dL Normal 0.67-1.17 BUN/Creatinine Ratio 18.9 Normal 8-20 Calcium 9.6 mg/dL Normal 8.6-10.3 Total Protein 6.9 g/dL Normal 6.4-8.9 Albumin 4.3 g/dL Normal 3.2-5.2 Globulin 2.6 g/dL Normal 2-4 Albumin/Globulin Ratio 1.7 Normal 1-3 Total Bilirubin 0.60 mg/dL Normal 0.2-1.0 Alkaline Phosphatase 72 U/L Normal 34-104 Alt 39 U/L Normal 7-52 Ast 48 U/L High 13-39 Egfr Non- 72.5 >60 Egfr 87.8 >60 7 1 Please check labs 2 days before follow up 2 Please check labs 2 days before follow up 3 Because ethnic data is not always readily [...] 15-29 5 Kidney failure <15 (or dialysis) 4 Because ethnic data is not always [...] 5 Kidney failure <15 (or dialysis) 5 S/O ORDERED 07/15/18 EXPIRES 01/15/19 6 Test Performed by: [facility] [address] [place] [id number] Dale Ramon M.D. Director of Laboratory 7 Because ethnic data is not always readily [...] 15-29 5 Kidney failure <15 (or dialysis) Procedures Description No Information Available Medical Devices Description No Information Available Encounters Type Date Location Provider Dx Diagnosis Office Visit 10/17/2018 Rheumatology Abhishek Sanabria, M05.79 Rheu arthritis w 1:40p [facility] Janet rheu factor mult site w/o org/sys involv Z79.899 Other retirement (current) drug therapy M43.16 Spondylolisthesis, lumbar region M77.11 Lateral epicondylitis, right elbow Office Visit 08/25/2018 9:00a Rheumatology Abhishek Sanabria, M05.79 Rheu arthritis [facility] Janet w rheu factor mult site w/o org/sys involv Z79.899 Other retirement (current) drug therapy M43.16 Spondylolisthesis, lumbar region Assessments Date Code Description Provider 01/10/2019 M05.79 Rheumatoid arthritis with rheumatoid factor of Abhishek Sanabria M.D. multiple site 01/10/2019 Z79.899 Other retirement (current) drug therapy Abhishek Sanabria M.D. 01/10/2019 M43.16 Spondylolisthesis, lumbar region Abhishek Sanabria M.D. 01/10/2019 R94.4 Abnormal results of kidney function studies Abhishek Sanabria M.D. 10/17/2018 M05.79 Rheumatoid arthritis with rheumatoid factor of Abhishek Sanabria M.D. multiple site 10/17/2018 Z79.899 Other salvage determiner (current) drug therapy Abhishek Sanabria M.D. 10/17/2018 M43.16 Spondylolisthesis, lumbar region Abhishek Sanabria M.D. 10/17/2018 M77.11 Lateral epicondylitis, right elbow Abhishek Sanabria M.D. 08/25/2018 M05.79 Rheumatoid arthritis with rheumatoid factor of Abhishek Sanabria M.D. [facility] site 08/25/2018 Z79.899 Other retirement (current) drug therapy Abhishek Sanabria M.D. 08/25/2018 M43.16 Spondylolisthesis, lumbar region Abhishek Sanabria M.D. Plan of Treatment Future Appointment(s):03/07/2019 1:40 pm - Abhishek Sanabria M.D. at [facility]05/29/2019 2:00 pm - Abhishek Sanabria M.D. at [facility]01/10/2019 - Abhishek Sanabria M.D.M05.79 Rheumatoid arthritis with rheumatoid factor of [facility] siteZ79.899 Other salvage determiner (current) drug izykctuR48.16 Spondylolisthesis, lumbar regionComments:Avoid Ibuprofen Decrease Sulfasalazine to once [id number] Abnormal results of kidney function studiesFollow up:Follow up in 6 to 8 weeks or sooner if needed Functional Status Description No Information Available Mental Status Description No Information Available Referrals Description No Information Available
--- OUTSIDE RECORDS SUMMARY | 2019-02-04 09:30 | XMS REPORT | Continuity of Care Document ---
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 Problems Description No Information Available Social History Type Date Description Comments Sex Unknown ETOH Use Occasionally consumes alcohol ETOH Use Currently consumes alcohol daily Tobacco Use Start: Unknown Patient has never smoked Recreational Drug Use Denies Drug Use Smoking Status Reviewed: 02/01/19 Patient has never smoked Exercise Type/Frequency Exercises [...] Caps 120MG By Mouth ER 24HR Daily Turmeric take 1 Unknown 500mg Capsules capsule/tablet daily by mouth Magnesium take one Unknown 300mg Capsules capsule/tablet daily by mouth Immunizations Description No Information Available Vital Signs Date Vital Result Comment 02/01/2019 10:15am Height 70.5 inches 5'10.50" Weight 213.00 lb Heart Rate 67 /min BP Systolic Sitting 160 mmHg BP Diastolic Sitting 98 mmHg Respiratory Rate 18 /min Pain Level 1 BMI (Body Mass Index) 30.1 kg/m2 01/10/2019 1:45pm Height 71 inches 5'11" Weight 212.25 lb Heart Rate 66 /min BP Systolic Sitting 132 mmHg BP Diastolic Sitting 80 mmHg Pain Level 1 O2 % BldC Oximetry 96 % BMI (Body Mass Index) 29.6 kg/m2 Results Test Date Facility Test Result H/L Range Note Basic Metabolic 01/27/2019 [facility] Sodium 134 mmol/L Low 135-[address] [place] [address] [phone] Potassium 4.1 mmol/L Normal 3.5-5.0 Chloride 95 mmol/L Low 101-111 Co2 Carbon Dioxide 29 mmol/L Normal 22-32 Anion Gap 10 mmol/L Normal 2-11 Glucose 108 mg/dL High 70-100 Blood Urea Nitrogen 24 mg/dL Normal 6-24 Creatinine 1.22 mg/dL High 0.67-1.17 BUN/Creatinine Ratio 19.7 Normal 8-20 Calcium 9.7 mg/dL Normal 8.6-10.3 Egfr Non- 61.7 >60 Egfr 74.6 >60 1 Laboratory test 01/27/2019 [facility] Creatine 765 U/L High 10 -223 [address] Kinase(CK) [place] [address] [phone] Laboratory test 01/09/2019 [facility] Erythrocyte Sed 0 mm/Hr Normal 0-19 [address] [place] [address] [phone] C Reactive Protein < 1.00 mg/L Normal <8.01 4 CBC Auto 01/09/2019 [facility] White Blood 4.6 10^3/uL Normal 3.5-10.[address] [place] [address] [phone] Red Blood Count 4.71 10^6/uL Normal 4.18-5.48 [...] Blood Cells % 0.1 Comp Metabolic 01/09/2019 [facility] Sodium 135 mmol/L Normal 135-[address] [place] [address] [phone] Potassium 4.4 mmol/L Normal 3.5-5.0 Chloride 100 [...] Egfr Non- 49.3 >60 Egfr 59.7 >60 5 Laboratory test 10/17/2018 [facility] Creatine 439 U/L High 10 -[address] Kinase(CK) [place] [address] [phone] Comp Metabolic 10/17/2018 [facility] Sodium 135 Normal 135- [address] mmol/[place] [address] [phone] Potassium 4.8 mmol/L Normal 3.5-5.0 Chloride 98 [...] Egfr Non- 68.1 >60 Egfr 82.4 >60 6 Laboratory test 10/17/2018 [facility] C Reactive 1.26 mg/L Normal <8.[address] [place] [address] [phone] CBC Auto Diff 10/17/2018 [facility] White Blood 7.3 Normal 3.5 -10.[address] Count 10^3/[place] [address] [phone] Red Blood Count 5.16 10^6/uL Normal 4.18-5.48 [...] Blood Cells % 0.1 Laboratory test 10/17/2018 [facility] Erythrocyte Sed 1 mm/Hr Normal 0-[address] [place] [address] [phone] 1 Because ethnic data is not always readily [...] 15-29 5 Kidney failure <15 (or dialysis) 2 Please check labs in 2 weeks 3 Please check labs 2 days before follow up 4 Please check labs 2 days before follow up 5 Because ethnic data is not always readily [...] 15-29 5 Kidney failure <15 (or dialysis) 6 Because ethnic data is not always readily [...] Date Location Provider Dx Diagnosis Office Visit 02/01/2019 Neurosurgery Landon Handley, M54.16 Radiculopathy, 10:00a [facility] RANI lumbar region M47.896 Other spondylosis, lumbar region Office Visit 01/10/2019 1:40p Rheumatology Abhishek Sanabria, M05.79 Sonya arthritis [facility] M.D. w rheu factor mult site w/o org/sys involv Z79.899 Other caretaker resort (current) drug therapy M43.16 Spondylolisthesis, lumbar region R94.4 Abnormal results of kidney function studies Office Visit 10/17/2018 1:40p Rheumatology Abhishek Sanabria M05.79 Rheu arthritis [facility] rheu factor [facility] [place] w/o org/sys involv Z79.899 Other group home (current) drug therapy M43.16 Spondylolisthesis, lumbar region M77.11 Lateral epicondylitis, right elbow Office Visit 08/25/2018 9:00a Rheumatology Abhishek Sanabria M05.79 Rheu arthritis [facility] w rheu factor mult site w/o org/sys involv Z79.899 Other group home (current) drug therapy M43.16 Spondylolisthesis, lumbar region Assessments Date Code Description Provider 02/01/2019 M54.16 Lumbar radiculopathy RANI Villatoro 02/01/2019 M47.896 Lumbar spondylosis RANI Villatoro 01/10/2019 M05.79 Rheumatoid arthritis with rheumatoid factor of Abhishek Sanabria M.D. multiple site 01/10/2019 Z79.899 Other caretaker resort (current) drug therapy Abhishek Sanabria M.D. 01/10/2019 M43.16 Spondylolisthesis, lumbar region Abhishek Sanabria M.D. 01/10/2019 R94.4 Abnormal results of kidney function studies Abhishek Sanabria M.D. 10/17/2018 M05.79 Rheumatoid arthritis with rheumatoid factor of Abhishek Sanabria M.D. multiple site 10/17/2018 Z79.899 Other group home (current) drug therapy Abhishek Sanabria M.D. 10/17/2018 M43.16 Spondylolisthesis, lumbar region Abhishek Sanabria M.D. 10/17/2018 M77.11 Lateral epicondylitis, right elbow Abhishek Sanabria M.D. 08/25/2018 M05.79 Rheumatoid arthritis with rheumatoid factor of Abhishek Sanabria M.D. multiple site 08/25/2018 Z79.899 Other caretaker resort (current) drug therapy Abhishek Sanabria M.D. 08/25/2018 M43.16 Spondylolisthesis, lumbar region Abhishek Sanabria M.D. Plan of Treatment Future Appointment(s):03/24/2019 1:30 pm - RANI Villatoro at Neurosurgery [facility]03/07/2019 1:40 pm - Abhishek Sanabria M.D. at Rheumatology [facility]05/29/2019 2:00 pm - Abhishek Sanabria M.D. at Rheumatology [facility]02/01/2019 - Landon Handley, PAM54.16 Radiculopathy, lumbar pjzibeV45.896 Other spondylosis, lumbar regionFollow up:Follow up after imagign is complete Functional Status Description No Information Available Mental Status Description No Information Available Referrals Refer to Dr Reason for Referral Status Appt Date Alyssa Birch MD Please evaluate patient with worsening Sent 2018 sciatic symptoms; history of back surgery [address] [place] [phone]
[2019-02-04 09:33] VITALS: BP 141/100
--- NOTE | 2019-02-04 09:54 | UC ---
Bite Injury/Animal HPI - HPI Summary HPI Summary: 54-year-old male comes in with a chief complaint of a tick bite. About 3 in the morning patient felt a tick on his scrotum which he pulled off. Reports he got the whole tick to include the head. Was bleeding site which stopped with direct pressure. No fevers no chills. No bull's-eye rash. Patient's had a sinus infection for more than 2 weeks he just finished a course of amoxicillin. Overall he still has green rhinorrhea and sinus congestion and feels like he has not improved much. He did use a saline wash which did help clear the rhinorrhea. - History of Current Complaint Chief Complaint: Marla Stated Complaint: TICK BITE Time Seen by Provider: 02/04/19 09:37 Pain Intensity: 0 - Allergies/Home Medications Allergies/Adverse Reactions: Allergies Allergy/AdvReac Type Severity Reaction Status Date / Time No Known Allergies Allergy Verified 02/04/19 09:33 PMH/Surg Hx/FS Hx/Imm Hx Previously Healthy: Yes - RA Cardiovascular History: Hypertension Other GI/ History: history of renal insufficiency - Surgical History Surgical History: Yes Surgery Procedure, Year, and Place: Hernia repair at age 14. "Rods" placed to back February 2018 - Family History Known Family History: Positive: Cardiac Disease - father, diabetes also, Hypertension - father, Diabetes - father, Non-Contributory - Social History Alcohol Use: Daily Alcohol Amount: 6 beers day Substance Use Type: None Smoking Status (MU): Never Smoked Tobacco - Immunization History Most Recent Influenza Vaccination: DID NOT GET THIS SEASON Most Recent Pneumonia Vaccination: none Review of Systems All Other Systems Reviewed And Are Negative: Yes Constitutional: Positive: Negative Skin: Positive: Other - SEE HPI Eyes: Positive: Negative ENT: Positive: Nasal Discharge, Sinus Congestion Respiratory: Positive: Negative Cardiovascular: Positive: Negative Gastrointestinal: Positive: Negative Motor: Positive: Negative Neurovascular: Positive: Negative Musculoskeletal: Positive: Negative Neurological: Positive: Negative Psychological: Positive: Negative Is Patient Immunocompromised?: Yes - RA, ON [place] Physical Exam Triage Information Reviewed: Yes Appearance: Well-Appearing, No Pain Distress, Well-Nourished Vital Signs: Initial Vital Signs Temp 98.6 F 02/04/19 09:29 Pulse 69 02/04/19 09:29 Resp 16 02/04/19 09:29 BP 141/100 02/04/19 09:29 Pulse Ox 100 02/04/19 09:29 Vital Signs Reviewed: Yes Eye Exam: Normal Eyes: Positive: Conjunctiva Clear ENT: Positive: Pharyngeal erythema, Nasal congestion, Nasal drainage, TMs normal Neck: Positive: Supple Respiratory: Positive: Lungs clear, Normal breath sounds, No respiratory distress Cardiovascular: Positive: RRR Male Genital Exam: Positive: Other - There is a punctate scab on the underside of the scrotum with some surrounding erythema about 2 cm in diameter. No bull's -eye rash no drainage. Neurological: Positive: Alert, Muscle Tone Normal Psychological: Positive: Age Appropriate Behavior Skin: Positive: Other - There is a punctate scab on the underside of the scrotum with some surrounding erythema about 2 cm in diameter. No bull's-eye rash no drainage. Bite Injury Course/Dx - Course Course Of Treatment: We discussed treatment with doxycycline 200 mg once for tick bite without symptoms of Lyme disease or bull's-eye rash. Patient's continuing to have sinus infection symptoms despite having been on amoxicillin for 10 days. We discussed further treatment of the sinusitis to include continuing saline nasal washes and continuing antibiotics. Chose doxycycline so that it would cover for both the sinusitis and any tickborne disease. Patient is immunocompromised due to having rheumatoid arthritis and being treated with immunosuppressants. Plan is to follow-up his primary care doctor get reevaluated sooner if worse or questions or concerns. - Differential Dx/Diagnosis Provider Diagnosis: Tick bite of scrotum, Sinusitis Discharge ED - Sign-Out/Discharge Documenting (check all that apply): Patient Departure All imaging exams completed and their final reports reviewed: No Studies - Discharge Plan Condition: Stable Disposition: HOME Prescriptions: DOXYcycline CAP(*) [DOXYcycline 100MG CAP(*)] 100 mg PO BID #28 cap Patient Education Materials: Sinusitis (ED), Tick Bite (ED) Referrals: Evin Barton MD [Primary Care Provider] - Additional Instructions: FOLLOW UP WITH YOUR DOCTOR IF NOT COMPLETELY IMPROVED. GET RECHECKED SOONER IF YOUR CONDITION WORSENS OR ANY QUESTIONS OR CONCERNS. - Billing Disposition and Condition Condition: STABLE Disposition: Home
== END 2019-02-04 10:00 | disposition home or self-care (01) ==
LOC: UCEAST 09:25
DX: S30.863A Insect bite (nonvenomous) of scrotum and testes, initial encounter (principal); J32.9 Chronic sinusitis, unspecified; I10 Essential (primary) hypertension; M06.9 Rheumatoid arthritis, unspecified; W57.XXXA Bitten or stung by nonvenomous insect and other nonvenomous arthropods, initial encounter; Y92.9 Unspecified place or not applicable
CPT/HCPCS: 99212; G0463